=== PATIENT | male | born 1935 | race Caucasian/White ===

== ENCOUNTER 2018-12-27 08:15 | Inpatient (IN) | payer MEDICARE, MEDICAID ==
[2018-12-27] MEDS ORDERED: cefTRIAXone 2 GM in Sodium Chloride 0.9% 50 ML IV ONE (08:33)
--- NOTE | 2018-12-27 08:37 | EDM.PDOC ---
ED HPI GENERAL MEDICAL PROBLEM - General Chief Complaint: Genitourinary Problem Stated Complaint: VIA [facility] AM Time Seen by Provider: 12/27/18 08:15 Source of Information: Reports: Patient, Provider History Limitations: Reports: No Limitations - History of Present Illness INITIAL COMMENTS - FREE TEXT/NARRATIVE: 83-year-old male who lives in assisted living is usually fairly independent. Over the past 24 hours become weak, confused, febrile, and stumbled and fell last night due to his weakness. He did not get injured or hit his head. This morning he has generalized malaise, very weak and not himself. He still seems confused. No shortness of breath, cough, nausea or vomiting, rashes or complaints of pain. Onset: Gradual, Unknown/Unsure (Symptoms started over the last 1-2 days) Associated Symptoms: Reports: Confusion, Fever/Chills, Malaise, Weakness - Related Data Allergies Allergy/AdvReac Type Severity Reaction Status Date / Time No Known Allergies Allergy Verified 12/27/18 09:05 Home Meds: Home Meds Cyanocobalamin (Vitamin B12) [Vitamin B12] 1,000 mg PO DAILY 12/04/15 [History] Cholecalciferol (Vitamin D3) [Vitamin D3] 2,000 unit PO DAILY 12/27/18 [History] Diclofenac Sodium [Voltaren] 100 gm TP QID 12/27/18 [History] Memantine [Namenda] 10 mg PO BEDTIME 12/27/18 [History] Psyllium [Metamucil] 1 gm PO DAILY 12/27/18 [History] Past Medical History HEENT History: Reports: Cataract, Glaucoma, Impaired Vision Cardiovascular History: Reports: Hypertension Gastrointestinal History: Reports: GERD Genitourinary History: Reports: Other (See Below) Other Genitourinary History: chronic indwelling cassidy since 2015 Musculoskeletal History: Reports: Arthritis Hematologic History: Reports: B12 Deficiency - Infectious Disease History Infectious Disease History: Reports: Chicken Pox Social & Family History - Family History Family Medical History: Unobtainable ED ROS GENERAL - Review of Systems Review Of Systems: See Below Constitutional: Reports: Fever, Chills, Malaise HEENT: Reports: No Symptoms Respiratory: Denies: Shortness of Breath, Cough Cardiovascular: Denies: Chest Pain GI/Abdominal: Reports: Decreased Appetite. Denies: Abdominal Pain, Nausea, Vomiting : Reports: Other (Patient denies any symptoms. His urine is very cloudy and malodorous) Musculoskeletal: Reports: No Symptoms Neurological: Reports: Confusion, Weakness. Denies: Headache ED EXAM, GENERAL - Physical Exam Exam: See Below Exam Limited By: No Limitations General Appearance: Alert, No Apparent Distress, Other (Patient is awake, answers questions appropriately but appears weak and tired) Eye Exam: Bilateral Eye: Normal Inspection (No jaundice) Throat/Mouth: Normal Inspection (Hydration appears normal) Head: Atraumatic Neck: Supple, Non-Tender Respiratory/Chest: Lungs Clear Cardiovascular: Regular Rate, Rhythm. No: Tachycardia GI/Abdominal: Soft, Non-Tender Extremities: Non-Tender. No: Pedal Edema Neurological: Slow to Respond Psychiatric: Depressed Mood, Flat Affect Skin Exam: Warm, Dry Course - Vital Signs Last Recorded V/S: Last Vital Signs Temp 98.2 F 12/27/18 11:13 Pulse 66 12/27/18 11:13 Resp 16 12/27/18 11:13 BP 140/46 L 12/27/18 11:13 Pulse Ox 96 12/27/18 11:13 - Orders/Labs/Meds Orders: Active Orders 24 hr Category Date Time Status CULTURE BLOOD [BC] Urgent Lab 12/27/18 08:45 Received CULTURE BLOOD [BC] Urgent Lab 12/27/18 08:48 Received CULTURE URINE [RM] Stat Lab 12/27/18 08:45 Received Sodium Chloride 0.9% [Normal Saline] 1,000 ml Med 12/27/18 10:15 Active IV ASDIRECTED Blood Culture x2 Reflex Set [OM.PC] Urgent Oth 12/27/18 08:32 Ordered Medication Orders Acetaminophen (Tylenol) 650 mg PO Q4H PRN PRN Reason: Pain (Mild 1-3)/fever Cyanocobalamin (Vitamin B12) 1,000 mcg PO DAILY RICHARD Sodium Chloride (Normal Saline) 1,000 mls @ 100 mls/hr IV ASDIRECTED RICHARD Last Admin: 12/27/18 10:32 Dose: 100 mls/hr Ceftriaxone Sodium 2 gm/ (Sodium Chloride) 50 mls @ 100 mls/hr IV Q24H RICHARD Lactobacillus Rhamnosus (Culturelle) 1 cap PO BID RICHARD Magnesium Hydroxide (Milk Of Magnesia) 30 ml PO Q12H PRN PRN Reason: Constipation Melatonin (Melatonin) 9 mg PO BEDTIME RICHARD Memantine (Namenda) 10 mg PO BEDTIME RICHARD Ondansetron HCl (Zofran Odt) 4 mg PO Q6H PRN PRN Reason: Nausea able to take PO Ondansetron HCl (Zofran) 4 mg IV Q6H PRN PRN Reason: Nausea/Vomiting Pneumococcal Polyvalent Vaccine (Pneumovax 23) 0.5 ml SUBCUT .ONCE ONE Stop: 12/28/18 14:01 Psyllium Husk (Metamucil Sugar Free) 1 pkt PO DAILY RICHARD Senna/Docusate Sodium (Senna Plus) 1 tab PO BID PRN PRN Reason: Constipation Labs: Laboratory Tests 12/27/18 12/27/18 12/27/18 Range/Units 08:45 08:45 08:45 WBC 14.0 H (4.5-11.0) K/uL RBC 4.16 L (4.30-5.90) M/uL Hgb 12.0 (12.0-15.0) g/dL Hct 36.6 L (40.0-54.0) % MCV 88 (80-98) fL MCH 29 (27-31) pg MCHC 33 (32-36) % Plt Count 362 (150-400) K/uL Neut % (Auto) 74 H (36-66) % Lymph % (Auto) 8 L (24-44) % [place] % (Auto) 19 H (2-6) % Eos % (Auto) 0 L (2-4) % Baso % (Auto) 0 (0-1) % Sodium 137 L (140-148) mmol/L Potassium 4.0 (3.6-5.2) mmol/L Chloride 104 (100-108) mmol/L Carbon Dioxide 24 (21-32) mmol/L Anion Gap 13.0 (5.0-14.0) mmol/L BUN 26 H D (7-18) mg/dL Creatinine 1.6 H D (0.8-1.3) mg/dL Est Cr Clr Drug Dosing 28.45 mL/min Estimated GFR (MDRD) 41 L (>60) Glucose 136 H (74-106) mg/dL Lactic Acid (0.4-2.0) mmol/L Calcium 10.6 H (8.5-10.1) mg/dL Total Bilirubin 0.9 D (0.2-1.0) mg/dL AST 24 (15-37) U/L ALT 21 (12-78) U/L Alkaline Phosphatase 111 (46-116) U/L Total Protein 7.3 (6.4-8.2) g/dL Albumin 3.0 L (3.4-5.0) g/dL Globulin 4.3 H (2.3-3.5) g/dL Albumin/Globulin Ratio 0.7 L (1.2-2.2) Urine Color Yellow Urine Appearance Cloudy Urine pH 9.0 H (4.5-8.0) Ur Specific [place] 1.005 L (1.008-1.030) Urine Protein 500 H (NEGATIVE) mg/dL Urine Glucose (UA) Normal (NEGATIVE) mg/dL Urine Ketones Negative (NEGATIVE) mg/dL Urine Occult Blood Large (NEGATIVE) Urine Nitrite Positive H (NEGAITVE) Urine Bilirubin Negative (NEGATIVE) Urine Urobilinogen Normal (NORMAL) mg/dL Ur Leukocyte Esterase Large (NEGATIVE) Urine RBC 40-50 H (0-5) Urine WBC 75-100 H (0-5) Ur Epithelial Cells Not seen Amorphous Sediment Not seen Urine Bacteria Many Urine Mucus Not seen 12/27/18 Range/Units 08:45 WBC (4.5-11.0) K/uL RBC (4.30-5.90) M/uL Hgb (12.0-15.0) g/dL Hct (40.0-54.0) % MCV (80-98) fL MCH (27-31) pg MCHC (32-36) % Plt Count (150-400) K/uL Neut % (Auto) (36-66) % Lymph % (Auto) (24-44) % [place] % (Auto) (2-6) % Eos % (Auto) (2-4) % Baso % (Auto) (0-1) % Sodium (140-148) mmol/L Potassium (3.6-5.2) mmol/L Chloride (100-108) mmol/L Carbon Dioxide (21-32) mmol/L Anion Gap (5.0-14.0) mmol/L BUN (7-18) mg/dL Creatinine (0.8-1.3) mg/dL Est Cr Clr Drug Dosing mL/min Estimated GFR (MDRD) (>60) Glucose (74-106) mg/dL Lactic Acid 1.3 (0.4-2.0) mmol/L Calcium (8.5-10.1) mg/dL Total Bilirubin (0.2-1.0) mg/dL AST (15-37) U/L ALT (12-78) U/L Alkaline Phosphatase (46-116) U/L Total Protein (6.4-8.2) g/dL Albumin (3.4-5.0) g/dL Globulin (2.3-3.5) g/dL Albumin/Globulin Ratio (1.2-2.2) Urine Color Urine Appearance Urine pH (4.5-8.0) Ur Specific [place] (1.008-1.030) Urine Protein (NEGATIVE) mg/dL Urine Glucose (UA) (NEGATIVE) mg/dL Urine Ketones (NEGATIVE) mg/dL Urine Occult Blood (NEGATIVE) Urine Nitrite (NEGAITVE) Urine Bilirubin (NEGATIVE) Urine Urobilinogen (NORMAL) mg/dL Ur Leukocyte Esterase (NEGATIVE) Urine RBC (0-5) Urine WBC (0-5) Ur Epithelial Cells Amorphous Sediment Urine Bacteria Urine Mucus Meds: Medications Generic Name Dose Route Start Last Admin Trade Name Freq PRN Reason Stop Dose Admin Acetaminophen 650 mg 12/27/18 10:38 Tylenol PO Q4H PRN Pain (Mild 1-3)/fever Cyanocobalamin 1,000 mcg 12/28/18 09:00 Vitamin B12 PO DAILY RICHARD Sodium Chloride 1,000 mls @ 100 mls/hr 12/27/18 10:15 12/27/18 10:32 Normal Saline IV 100 mls/hr ASDIRECTED RICHARD Administration Ceftriaxone Sodium 2 gm/ 50 mls @ 100 mls/hr 12/28/18 09:00 Sodium Chloride IV Q24H RICHARD Lactobacillus Rhamnosus 1 cap 12/27/18 21:00 Culturelle PO BID RICHARD Magnesium Hydroxide 30 ml 12/27/18 10:38 Milk Of Magnesia PO Q12H PRN Constipation Melatonin 9 mg 12/27/18 21:00 Melatonin PO BEDTIME RICHARD Memantine 10 mg 12/27/18 21:00 Namenda PO BEDTIME RICHARD Ondansetron HCl 4 mg 12/27/18 10:38 Zofran Odt PO Q6H PRN Nausea able to take PO Ondansetron HCl 4 mg 12/27/18 10:38 Zofran IV Q6H PRN Nausea/Vomiting Pneumococcal Polyvalent Vaccine 0.5 ml 12/28/18 14:00 Pneumovax 23 SUBCUT 12/28/18 14:01 .ONCE ONE Psyllium Husk 1 pkt 12/28/18 09:00 Metamucil Sugar Free PO DAILY RICHARD Senna/Docusate Sodium 1 tab 12/27/18 10:38 Senna Plus PO BID PRN Constipation Discontinued Medications Generic Name Dose Route Start Last Admin Trade Name Freq PRN Reason Stop Dose Admin Sodium Chloride 1,000 mls @ 1,000 mls/hr 12/27/18 08:45 12/27/18 08:48 Normal Saline IV 1,000 mls/hr ASDIRECTED RICHARD Administration Ceftriaxone Sodium 2 gm/ 50 mls @ 100 mls/hr 12/27/18 08:33 12/27/18 08:58 Sodium Chloride IV 12/27/18 09:02 100 mls/hr ONETIME ONE Administration - Re-Assessments/Exams Free Text/Narrative Re-Assessment/Exam: 12/27/18 08:37 IV was started, patient was given 1 L of normal saline along with 2 g of Rocephin after blood cultures obtained. A urine obtained was very cloudy and malodorous, CBC CMP and lactic acid also obtained. Suspect a urinary tract infection 12/27/18 09:10 White count is 14,000, UA is markedly abnormal with nitrite positive urine, many bacteria and significant WBCs and RBCs. Fluids were continued and Dr. Mcnamara of the hospitalist service was contacted to assess the patient for admission. CMP is still pending. Departure - Departure Time of Disposition: 10:52 Disposition: Admitted As Inpatient 64 Clinical Impression: UTI, Urinary tract infectious disease, Complicated urinary tract infection - Discharge Information - My Orders Last 24 Hours: My Active Orders 12/27/18 08:32 Blood Culture x2 Reflex Set [OM.PC] Urgent 12/27/18 08:45 CULTURE BLOOD [BC] Urgent CULTURE URINE [RM] Stat 12/27/18 08:48 CULTURE BLOOD [BC] Urgent - Assessment/Plan Last 24 Hours: My Active Orders 12/27/18 08:32 Blood Culture x2 Reflex Set [OM.PC] Urgent 12/27/18 08:45 CULTURE BLOOD [BC] Urgent CULTURE URINE [RM] Stat 12/27/18 08:48 CULTURE BLOOD [BC] Urgent
[2018-12-27] MEDS ORDERED: Sodium Chloride 0.9% 1,000 ML IV SCH (08:45)
--- NOTE | 2018-12-27 10:16 | PCM.HP ---
H&P History of Present Illness - General Date of Service: 12/27/18 Admit Problem/Dx: Admission Diagnosis/Problem Admission Diagnosis/Problem Complicated urinary tract infection Source of Information: Patient, Family, Provider History Limitations: Reports: Altered Mental Status (moderate confusion ) - History of Present Illness Initial Comments - Free Text/Narative: CC: i am worried about going potty HPI: Chauncey presents to the emergency room today from [facility]. He is moderately confused and provides some history but most of the history is provided by his daughter Meredith. She reports that yesterday he was more sleepy than usual and did not have much of an appetite. Staff at the assisted living did not notice anything out of the ordinary for his vital signs. There were no acute issues overnight last night but this morning he was confused and more sleepy. They were worried that he may be had a stroke so he was sent for evaluation. This morning the patient tells me that he is very nervous about passing urine because it hurts to pass urine. He does not report any abdominal pain or nausea. His daughter did notice some blood in his depends that she thought was dribbling from urination. He doesn't think he's had any fevers and assisted living staff have not documented any. His daughter reports that he does have a history of urinary tract infections. No recent antibiotics. Workup in the emergency room has revealed evidence for urinary tract infection. He does not have complete obstruction at this time and is able to pass some urine. Does not have evidence for sepsis but is weak and confused. He has received ceftriaxone and cultures have been obtained. He will be admitted for further management. - Related Data Allergies/Adverse Reactions: Allergies Allergy/AdvReac Type Severity Reaction Status Date / Time No Known Allergies Allergy Verified 12/27/18 09:05 Home Medications: Home Meds Cyanocobalamin (Vitamin B12) [Vitamin B12] 1,000 mg PO DAILY 12/04/15 [History] Cholecalciferol (Vitamin D3) [Vitamin D3] 2,000 unit PO DAILY 12/27/18 [History] Diclofenac Sodium [Voltaren] 100 gm TP QID 12/27/18 [History] Memantine [Namenda] 10 mg PO BEDTIME 12/27/18 [History] Psyllium [Metamucil] 1 gm PO DAILY 12/27/18 [History] Past Medical History HEENT History: Reports: Cataract, Glaucoma, Impaired Vision Other HEENT History: dry eye Cardiovascular History: Reports: Hypertension Other Cardiovascular History: RBBB Gastrointestinal History: Reports: GERD Genitourinary History: Reports: Other (See Below) Other Genitourinary History: chronic indwelling cassidy since 2015 Musculoskeletal History: Reports: Arthritis Neurological History: Reports: Other (See Below) Other Neuro History: dementia Psychiatric History: Reports: Schizophrenia Hematologic History: Reports: B12 Deficiency Dermatologic History: Reports: Other (See Below) Other Dermatologic History: alopecia - Infectious Disease History Infectious Disease History: Reports: Chicken Pox - Past Surgical History HEENT Surgical History: Reports: Cataract Surgery Male Surgical History: Reports: Other (See Below) Other Male Surgeries/Procedures: BPH Social & Family History - Family History Family Medical History: Unobtainable - Tobacco Use Smoking Status *Q: Unknown Ever Smoked - Caffeine Use Caffeine Use: Reports: Other Other Caffeine Use: unknown H&P Review of Systems - Review of Systems: Review Of Systems: See Below Free Text/Narrative: A complete 12 point review of systems was obtained. Pertinent positives and negatives are noted in the history of present illness. All other systems were reviewed and were negative except as noted. Exam - Exam Exam: See Below - Vital Signs Vital Signs: Last Vital Signs Temp 37.7 C 12/27/18 08:18 Pulse 89 12/27/18 08:18 Resp 18 12/27/18 08:18 BP 154/73 H 12/27/18 08:18 Pulse Ox 95 12/27/18 08:18 Weight: 61.689 kg - Exam Quality Assessment: No: Supplemental Oxygen General: Alert, Cooperative. No: Mild Distress HEENT: Conjunctiva Clear. No: Mucosa Moist & [place] (dry), Scleral Icterus Neck: Supple, Trachea Midline. No: Lymphadenopathy Lungs: Clear to Auscultation, Normal Respiratory Effort Cardiovascular: Regular Rate, Regular Rhythm. No: Systolic Murmur GI/Abdominal Exam: Normal Bowel Sounds, Soft, Non-Tender, No Distention Extremities: No Pedal Edema. No: Increased Warmth Peripheral Pulses: 2+: Dorsalis Pedis (L), Dorsalis Pedis (R) Skin: Warm, Dry. No: Rash Neuro Extensive - Mental Status: Alert, Nl Response to Commands. No: Oriented x3 Neuro Extensive - Motor, Sensory, Reflexes: No: Dysarthria, Abnormal Motor, Tremor Psychiatric: Alert, Normal Affect - Patient Data Lab Results Last 24 hrs: Laboratory Results - last 24 hr 12/27/18 12/27/18 12/27/18 Range/Units 08:45 08:45 08:45 WBC 14.0 H (4.5-11.0) K/uL RBC 4.16 L (4.30-5.90) M/uL Hgb 12.0 (12.0-15.0) g/dL Hct 36.6 L (40.0-54.0) % MCV 88 (80-98) fL MCH 29 (27-31) pg MCHC 33 (32-36) % Plt Count 362 (150-400) K/uL Neut % (Auto) 74 H (36-66) % Lymph % (Auto) 8 L (24-44) % [place] % (Auto) 19 H (2-6) % Eos % (Auto) 0 L (2-4) % Baso % (Auto) 0 (0-1) % Sodium 137 L (140-148) mmol/L Potassium 4.0 (3.6-5.2) mmol/L Chloride 104 (100-108) mmol/L Carbon Dioxide 24 (21-32) mmol/L Anion Gap 13.0 (5.0-14.0) mmol/L BUN 26 H D (7-18) mg/dL Creatinine 1.6 H D (0.8-1.3) mg/dL Est Cr Clr Drug Dosing 28.45 mL/min Estimated GFR (MDRD) 41 L (>60) Glucose 136 H (74-106) mg/dL Lactic Acid (0.4-2.0) mmol/L Calcium 10.6 H (8.5-10.1) mg/dL Total Bilirubin 0.9 D (0.2-1.0) mg/dL AST 24 (15-37) U/L ALT 21 (12-78) U/L Alkaline Phosphatase 111 (46-116) U/L Total Protein 7.3 (6.4-8.2) g/dL Albumin 3.0 L (3.4-5.0) g/dL Globulin 4.3 H (2.3-3.5) g/dL Albumin/Globulin Ratio 0.7 L (1.2-2.2) Urine Color Yellow Urine Appearance Cloudy Urine pH 9.0 H (4.5-8.0) Ur Specific [place] 1.005 L (1.008-1.030) Urine Protein 500 H (NEGATIVE) mg/dL Urine Glucose (UA) Normal (NEGATIVE) mg/dL Urine Ketones Negative (NEGATIVE) mg/dL Urine Occult Blood Large (NEGATIVE) Urine Nitrite Positive H (NEGAITVE) Urine Bilirubin Negative (NEGATIVE) Urine Urobilinogen Normal (NORMAL) mg/dL Ur Leukocyte Esterase Large (NEGATIVE) Urine RBC 40-50 H (0-5) Urine WBC 75-100 H (0-5) Ur Epithelial Cells Not seen Amorphous Sediment Not seen Urine Bacteria Many Urine Mucus Not seen 12/27/18 Range/Units 08:45 WBC (4.5-11.0) K/uL RBC (4.30-5.90) M/uL Hgb (12.0-15.0) g/dL Hct (40.0-54.0) % MCV (80-98) fL MCH (27-31) pg MCHC (32-36) % Plt Count (150-400) K/uL Neut % (Auto) (36-66) % Lymph % (Auto) (24-44) % [place] % (Auto) (2-6) % Eos % (Auto) (2-4) % Baso % (Auto) (0-1) % Sodium (140-148) mmol/L Potassium (3.6-5.2) mmol/L Chloride (100-108) mmol/L Carbon Dioxide (21-32) mmol/L Anion Gap (5.0-14.0) mmol/L BUN (7-18) mg/dL Creatinine (0.8-1.3) mg/dL Est Cr Clr Drug Dosing mL/min Estimated GFR (MDRD) (>60) Glucose (74-106) mg/dL Lactic Acid 1.3 (0.4-2.0) mmol/L Calcium (8.5-10.1) mg/dL Total Bilirubin (0.2-1.0) mg/dL AST (15-37) U/L ALT (12-78) U/L Alkaline Phosphatase (46-116) U/L Total Protein (6.4-8.2) g/dL Albumin (3.4-5.0) g/dL Globulin (2.3-3.5) g/dL Albumin/Globulin Ratio (1.2-2.2) Urine Color Urine Appearance Urine pH (4.5-8.0) Ur Specific [place] (1.008-1.030) Urine Protein (NEGATIVE) mg/dL Urine Glucose (UA) (NEGATIVE) mg/dL Urine Ketones (NEGATIVE) mg/dL Urine Occult Blood (NEGATIVE) Urine Nitrite (NEGAITVE) Urine Bilirubin (NEGATIVE) Urine Urobilinogen (NORMAL) mg/dL Ur Leukocyte Esterase (NEGATIVE) Urine RBC (0-5) Urine WBC (0-5) Ur Epithelial Cells Amorphous Sediment Urine Bacteria Urine Mucus Result Diagrams: 12/27/18 08:45 12/27/18 08:45 *Q Meaningful Use (ADM) - VTE Risk Assess *Q Each Risk Factor Represents 1 Point: None Total Score 1 Point Risk Factors: 0 Each Risk Factor Represents 2 Points: None Total Score 2 Point Risk Factors: 0 Each Risk Factor Represents 3 Points: Age 75 Years or Greater Total Score 3 Point Risk Factors: 3 Each Risk Factor Represents 5 Points: None Total Score 5 Point Risk Factors: 0 Venous Thromboembolism Risk Factor Score *Q: 3 - Problem List (1) Complicated urinary tract infection SNOMED Code(s): 75516415 ICD Code: N39.0 - URINARY TRACT INFECTION, SITE NOT SPECIFIED Status: Acute Current Visit: Yes (2) Acute kidney injury SNOMED Code(s): 41385030, 26369285 ICD Code: N17.9 - ACUTE KIDNEY FAILURE, UNSPECIFIED Status: Acute Current Visit: Yes (3) Alzheimer's dementia without behavioral disturbance SNOMED Code(s): 86000485 ICD Code: G30.9 - ALZHEIMER'S DISEASE, UNSPECIFIED; F02.80 - DEMENTIA IN OTH DISEASES CLASSD ELSWHR W/O BEHAVRL DISTURB Status: Acute Current Visit: Yes (4) BPH NOS w ur obs/LUTS SNOMED Code(s): 470800768, 783472670 ICD Code: N40.1 - BENIGN PROSTATIC HYPERPLASIA WITH LOWER URINARY TRACT SYMP Status: Acute Current Visit: Yes Problem List Initiated/Reviewed/Updated: Yes Orders Last 24hrs: Active Orders 24 hr Category Date Time Status Patient Status Manage Transfer [TRANSFER] Routine ADT 12/27/18 10:07 Ordered CULTURE BLOOD [BC] Urgent Lab 12/27/18 08:45 Received CULTURE BLOOD [BC] Urgent Lab 12/27/18 08:48 Received CULTURE URINE [RM] Stat Lab 12/27/18 08:45 Received Sodium Chloride 0.9% [Normal Saline] 1,000 ml Med 12/27/18 08:45 Active IV ASDIRECTED Sodium Chloride 0.9% [Normal Saline] 1,000 ml Med 12/27/18 10:15 Active IV ASDIRECTED Blood Culture x2 Reflex Set [OM.PC] Urgent Oth 12/27/18 08:32 Ordered Resuscitation Status Routine Resus Stat 12/27/18 10:09 Ordered Medication Orders Sodium Chloride (Normal Saline) 1,000 mls @ 1,000 mls/hr IV ASDIRECTED RICHARD Last Admin: 12/27/18 08:48 Dose: 1,000 mls/hr Sodium Chloride (Normal Saline) 1,000 mls @ 100 mls/hr IV ASDIRECTED RICHARD Assessment/Plan Comment:: ASSESSMENT AND PLAN - Compensated urinary tract infection - history of BPH with lower urinary tract symptoms. Previous history of urinary obstruction necessitating temporary Cassidy catheter placement. No evidence for complete obstruction at this time. No evidence for sepsis but he is weak, confused and not safe for outpatient management. He is at high risk for development of urinary retention. -IV fluids -Ceftriaxone -Follow-up cultures Acute kidney injury - moderate elevation of creatinine from baseline. Probably related to poor intake and infection. I would anticipate this will improve with IV fluids as mentioned above. Alzheimer's dementia - appears to be relatively mild at this time. -Melatonin at bedtime -Continue home medication at bedtime Maintenance issues - - DVT prophylaxis - mechanical - GI prophylaxis - not indicated - Nutrition - regular - Cassidy catheter - not indicated at this time CODE STATUS - DNR/DNI per advance directive Admission justification - This patient will be admitted for inpatient services and is medically appropriate meeting medical necessity for inpatient admission as outlined in my documentation. I reasonably expect the patient will require inpatient services that span a period time over 2 midnights. I reasonably expect this patient to be discharged or transferred within 96 hours [facility]. Disposition - I would anticipate discharge back to the assisted living facility after the hospital stay Primary care physician - [facility] Laurent Mcnamara M.D.
[2018-12-27] MEDS: Sodium Chloride 0.9% 1,000 ML IV SCH ×2 (10:32→19:52)
[2018-12-27] MEDS ORDERED: Ondansetron 4 MG/2 ML SDV IV PRN (10:38)
[2018-12-27] MEDS ORDERED: Ondansetron 4 MG Tab.DIS PO PRN (10:38)
[2018-12-27] MEDS ORDERED: Acetaminophen 325 MG Tab PO PRN (10:38)
[2018-12-27] MEDS ORDERED: Magnesium Hydroxide 400 MG/5 ML Susp 30 ML Cup PO PRN (10:38)
[2018-12-27] MEDS: Lactobacillus Rhamnosus GG (Probiotic) Cap PO SCH (21:54)
[2018-12-27] MEDS: Memantine 10 MG Tab PO SCH (21:54)
[2018-12-27] MEDS: Melatonin 3 MG Tab PO SCH (21:54)
[2018-12-28] MEDS: Sodium Chloride 0.9% 1,000 ML IV SCH (05:36)
[2018-12-28] MEDS: cefTRIAXone 2 GM in Sodium Chloride 0.9% 50 ML IV SCH (08:15)
[2018-12-28] MEDS: Psyllium Husk Powder Sugar Free 5.85 GM Packet PO SCH (08:18)
[2018-12-28] MEDS: Cyanocobalamin (Vitamin B12) 1,000 MCG Tab PO SCH (08:18)
[2018-12-28] MEDS: Lactobacillus Rhamnosus GG (Probiotic) Cap PO SCH ×2 (08:18→21:30)
--- NOTE | 2018-12-28 11:13 | PCM.PN ---
- General Info Date of Service: 12/28/18 Subjective Update: no acute events overnight. No fevers overnight. Patient does not report abdominal pain or dysuria. He remains pleasantly confused. He has been up and walking around and did well with physical therapy. Urine culture is growing a gram-negative rods with identification pending. Functional Status: Reports: Pain Controlled, Tolerating Diet - Review of Systems General: Denies: Fever Genitourinary: Denies: Dysuria - Patient Data Vitals - Most Recent: Last Vital Signs Temp 36.6 C 12/28/18 11:06 Pulse 52 L 12/28/18 11:06 Resp 16 12/28/18 11:06 BP 109/54 L 12/28/18 11:06 Pulse Ox 97 12/28/18 11:06 Weight - Most Recent: 61.689 kg I&O - Last 24 Hours: Intake & Output 12/27/18 12/28/18 12/28/18 22:59 06:59 14:59 Intake Total 978 1124 670 Output Total 150 150 150 Balance 828 974 520 Lab Results Last 24 Hours: Laboratory Results - last 24 hr 12/28/18 12/28/18 Range/Units 04:37 04:37 WBC 11.4 H (4.5-11.0) K/uL RBC 3.68 L (4.30-5.90) M/uL Hgb 10.3 L (12.0-15.0) g/dL Hct 32.8 L (40.0-54.0) % MCV 89 (80-98) fL MCH 28 (27-31) pg MCHC 31 L (32-36) % Plt Count 308 (150-400) K/uL Sodium 142 (140-148) mmol/L Potassium 4.0 (3.6-5.2) mmol/L Chloride 111 H (100-108) mmol/L Carbon Dioxide 24 (21-32) mmol/L Anion Gap 11.0 (5.0-14.0) mmol/L BUN 22 H (7-18) mg/dL Creatinine 1.3 (0.8-1.3) mg/dL Est Cr Clr Drug Dosing 35.02 mL/min Estimated GFR (MDRD) 52 L (>60) Glucose 94 (74-106) mg/dL Calcium 10.1 (8.5-10.1) mg/dL Ramo Results Last 24 Hours: Microbiology 12/27/18 08:48 Aerobic Blood Culture - Preliminary Blood - Arm, Right NO GROWTH AFTER 1 DAY Anaerobic Blood Culture - Preliminary NO GROWTH AFTER 1 DAY 12/27/18 08:45 Aerobic Blood Culture - Preliminary Blood - Venous - Iv Start NO GROWTH AFTER 1 DAY Anaerobic Blood Culture - Preliminary NO GROWTH AFTER 1 DAY 12/27/18 08:45 Urine Culture - Preliminary Urine, Clean Catch Med Orders - Current: Current Medications Acetaminophen (Tylenol) 650 mg PO Q4H PRN PRN Reason: Pain (Mild 1-3)/fever Cyanocobalamin (Vitamin B12) 1,000 mcg PO DAILY [facility] Last Admin: 12/28/18 08:18 Dose: 1,000 mcg Ceftriaxone Sodium 2 gm/ (Sodium Chloride) 50 mls @ 100 mls/hr IV Q24H [facility] Last Admin: 12/28/18 08:15 Dose: 100 mls/hr Lactobacillus Rhamnosus (Culturelle) 1 cap PO BID [facility] Last Admin: 12/28/18 08:18 Dose: 1 cap Magnesium Hydroxide (Milk Of Magnesia) 30 ml PO Q12H PRN PRN Reason: Constipation Melatonin (Melatonin) 9 mg PO BEDTIME [facility] Last Admin: 12/27/18 21:54 Dose: 9 mg Memantine (Namenda) 10 mg PO BEDTIME [facility] Last Admin: 12/27/18 21:54 Dose: 10 mg Ondansetron HCl (Zofran Odt) 4 mg PO Q6H PRN PRN Reason: Nausea able to take PO Ondansetron HCl (Zofran) 4 mg IV Q6H PRN PRN Reason: Nausea/Vomiting Pneumococcal Polyvalent Vaccine (Pneumovax 23) 0.5 ml SUBCUT .ONCE ONE Stop: 12/28/18 14:01 Psyllium Husk (Metamucil Sugar Free) 1 pkt PO DAILY [facility] Last Admin: 12/28/18 08:18 Dose: 1 pkt Senna/Docusate Sodium (Senna Plus) 1 tab PO BID PRN PRN Reason: Constipation Discontinued Medications Sodium Chloride (Normal Saline) 1,000 mls @ 1,000 mls/hr IV ASDIRECTED [facility] Last Admin: 12/27/18 08:48 Dose: 1,000 mls/hr Ceftriaxone Sodium 2 gm/ (Sodium Chloride) 50 mls @ 100 mls/hr IV ONETIME ONE Stop: 12/27/18 09:02 Last Admin: 12/27/18 08:58 Dose: 100 mls/hr Sodium Chloride (Normal Saline) 1,000 mls @ 100 mls/hr IV ASDIRECTED [facility] Last Admin: 12/28/18 05:36 Dose: 100 mls/hr - Exam Quality Assessment: No: Supplemental Oxygen General: Alert, Cooperative, No Acute Distress Lungs: Normal Respiratory Effort Cardiovascular: Regular Rate, Regular Rhythm GI/Abdominal Exam: Soft, No Distention Extremities: No Pedal Edema Psy/Mental Status: Alert, Normal Affect - Problem List & Annotations (1) Complicated urinary tract infection SNOMED Code(s): 37801435 Code(s): N39.0 - URINARY TRACT INFECTION, SITE NOT SPECIFIED Status: Acute Current Visit: Yes (2) Acute kidney injury SNOMED Code(s): 99943777, 80158957 Code(s): N17.9 - ACUTE KIDNEY FAILURE, UNSPECIFIED Status: Acute Current Visit: Yes (3) Alzheimer's dementia without behavioral disturbance SNOMED Code(s): 69530487 Code(s): G30.9 - ALZHEIMER'S DISEASE, UNSPECIFIED; F02.80 - DEMENTIA IN OTH DISEASES CLASSD ELSWHR W/O BEHAVRL DISTURB Status: Acute Current Visit: Yes (4) BPH NOS w ur obs/LUTS SNOMED Code(s): 535600133, 784169289 Code(s): N40.1 - BENIGN PROSTATIC HYPERPLASIA WITH LOWER URINARY TRACT SYMP Status: Acute Current Visit: Yes - Problem List Review Problem List Initiated/Reviewed/Updated: Yes - My Orders Last 24 Hours: My Active Orders 12/27/18 10:38 Patient Status [ADT] Routine Antiembolic Devices [RC] .Routine Intake and Output [RC] QSHIFT Notify Provider Vital Signs [RC] ASDIRECTED Oxygen Therapy [RC] PRN Up With Assistance [RC] ASDIRECTED Vital Signs [RC] Q4H Acetaminophen [Tylenol] 650 mg PO Q4H PRN Docusate Sodium/Sennosides [Senna Plus] 1 tab PO BID PRN Magnesium Hydroxide [Milk of Magnesia] 30 ml PO Q12H PRN Ondansetron [Zofran ODT] 4 mg PO Q6H PRN Ondansetron [Zofran] 4 mg IV Q6H PRN Sequential Compression Device [OM.PC] Routine 12/27/18 21:00 Lactobacillus Rhamnosus GG [Culturelle] 1 cap PO BID Melatonin 9 mg PO BEDTIME Memantine [Namenda] 10 mg PO BEDTIME 12/27/18 Lunch Regular Diet [DIET] 12/28/18 07:00 PT Evaluation and Treatment [CONS] Routine 12/28/18 09:00 Cyanocobalamin (Vitamin B12) [Vitamin B12] 1,000 mcg PO DAILY Psyllium Husk/Aspartame [Metamucil Sugar Free] 1 pkt PO DAILY cefTRIAXone [Rocephin] 2 gm Sodium Chloride 0.9% [Normal Saline] 50 ml IV Q24H 12/28/18 09:16 Convert IV to Saline Lock [OM.PC] Routine 12/28/18 14:00 Pneumococcal Polyvalent-23 Vac [Pneumovax 23] 0.5 ml SUBCUT .ONCE ONE 12/29/18 05:00 BASIC METABOLIC PANEL,BMP [CHEM] Timed CBC W/O DIFF,HEMOGRAM [HEME] Timed (1) - Plan Plan:: ASSESSMENT AND PLAN - Compensated urinary tract infection - history of BPH with lower urinary tract symptoms. white count improving. Urine culture growing gram-negative gissel. Urinary symptoms improving. -saline lock IV fluids -Ceftriaxone -Follow-up culture Acute kidney injury - moderate elevation of creatinine from baseline. creatinine has improved overnight and I would expect further improvement over the next 24 hours. Alzheimer's dementia - appears to be relatively mild at this time. No behavior issues. -Melatonin at bedtime -Continue home medication at bedtime Maintenance issues - - DVT prophylaxis - mechanical - GI prophylaxis - not indicated - Nutrition - regular Disposition - I would anticipate discharge back to the assisted living facility after the hospital stay Primary care physician - [facility] Laurent Mcnamara M.D.
[2018-12-28] MEDS ORDERED: Pneumococcal Polyvalent-23 Vaccine 0.5 ML SDV SUBCUT ONE (14:00)
[2018-12-28] MEDS: Melatonin 3 MG Tab PO SCH (21:31)
[2018-12-28] MEDS: Memantine 10 MG Tab PO SCH (21:32)
[2018-12-29] MEDS: Psyllium Husk Powder Sugar Free 5.85 GM Packet PO SCH (08:31)
[2018-12-29] MEDS: Cyanocobalamin (Vitamin B12) 1,000 MCG Tab PO SCH (08:31)
[2018-12-29] MEDS: Lactobacillus Rhamnosus GG (Probiotic) Cap PO SCH ×2 (08:31→20:31)
[2018-12-29] MEDS: cefTRIAXone 2 GM in Sodium Chloride 0.9% 50 ML IV SCH (08:37)
--- NOTE | 2018-12-29 09:07 | PCM.PN ---
- General Info Date of Service: 12/29/18 Subjective Update: No acute events overnight. No fevers. No behavior issues. Vital signs have all been stable. Appetite has been good. Strength is improving. Urine culture grew out a Proteus which is sensitive to third-generation cephalosporins. Functional Status: Reports: Pain Controlled, Tolerating Diet - Review of Systems General: Denies: Fever - Patient Data Vitals - Most Recent: Last Vital Signs Temp 36.6 C 12/29/18 07:13 Pulse 53 L 12/29/18 07:13 Resp 16 12/29/18 07:13 BP 144/66 H 12/29/18 07:13 Pulse Ox 96 12/29/18 07:13 Weight - Most Recent: 61.689 kg I&O - Last 24 Hours: Intake & Output 12/28/18 12/29/18 12/29/18 22:59 06:59 14:59 Intake Total 670 Output Total 175 Balance -175 670 Lab Results Last 24 Hours: Laboratory Results - last 24 hr 12/29/18 12/29/18 Range/Units 05:22 05:22 WBC 9.4 (4.5-11.0) K/uL RBC 3.47 L (4.30-5.90) M/uL Hgb 9.7 L (12.0-15.0) g/dL Hct 31.3 L (40.0-54.0) % MCV 90 (80-98) fL MCH 28 (27-31) pg MCHC 31 L (32-36) % Plt Count 312 (150-400) K/uL Sodium 143 (140-148) mmol/L Potassium 4.1 (3.6-5.2) mmol/L Chloride 111 H (100-108) mmol/L Carbon Dioxide 25 (21-32) mmol/L Anion Gap 11.1 (5.0-14.0) mmol/L BUN 20 H (7-18) mg/dL Creatinine 1.2 (0.8-1.3) mg/dL Est Cr Clr Drug Dosing 37.94 mL/min Estimated GFR (MDRD) 58 L (>60) Glucose 88 (74-106) mg/dL Calcium 10.2 H (8.5-10.1) mg/dL Ramo Results Last 24 Hours: Microbiology 12/27/18 08:48 Aerobic Blood Culture - Preliminary Blood - Arm, Right NO GROWTH AFTER 2 DAYS Anaerobic Blood Culture - Preliminary NO GROWTH AFTER 2 DAYS 12/27/18 08:45 Aerobic Blood Culture - Preliminary Blood - Venous - Iv Start NO GROWTH AFTER 2 DAYS Anaerobic Blood Culture - Preliminary NO GROWTH AFTER 2 DAYS 12/27/18 08:45 Urine Culture - Final Urine, Clean Catch Proteus Hauseri Med Orders - Current: Current Medications Acetaminophen (Tylenol) 650 mg PO Q4H PRN PRN Reason: Pain (Mild 1-3)/fever Cyanocobalamin (Vitamin B12) 1,000 mcg PO DAILY [facility] Last Admin: 12/29/18 08:31 Dose: 1,000 mcg Ceftriaxone Sodium 2 gm/ (Sodium Chloride) 50 mls @ 100 mls/hr IV Q24H [facility] Last Admin: 12/29/18 08:37 Dose: 100 mls/hr Lactobacillus Rhamnosus (Culturelle) 1 cap PO BID [facility] Last Admin: 12/29/18 08:31 Dose: 1 cap Magnesium Hydroxide (Milk Of Magnesia) 30 ml PO Q12H PRN PRN Reason: Constipation Melatonin (Melatonin) 9 mg PO BEDTIME [facility] Last Admin: 12/28/18 21:31 Dose: 9 mg Memantine (Namenda) 10 mg PO BEDTIME [facility] Last Admin: 12/28/18 21:32 Dose: 10 mg Ondansetron HCl (Zofran Odt) 4 mg PO Q6H PRN PRN Reason: Nausea able to take PO Ondansetron HCl (Zofran) 4 mg IV Q6H PRN PRN Reason: Nausea/Vomiting Psyllium Husk (Metamucil Sugar Free) 1 pkt PO DAILY [facility] Last Admin: 12/29/18 08:31 Dose: 1 pkt Senna/Docusate Sodium (Senna Plus) 1 tab PO BID PRN PRN Reason: Constipation Discontinued Medications Sodium Chloride (Normal Saline) 1,000 mls @ 1,000 mls/hr IV ASDIRECTED [facility] Last Admin: 12/27/18 08:48 Dose: 1,000 mls/hr Ceftriaxone Sodium 2 gm/ (Sodium Chloride) 50 mls @ 100 mls/hr IV ONETIME ONE Stop: 12/27/18 09:02 Last Admin: 12/27/18 08:58 Dose: 100 mls/hr Sodium Chloride (Normal Saline) 1,000 mls @ 100 mls/hr IV ASDIRECTED [facility] Last Admin: 12/28/18 05:36 Dose: 100 mls/hr Pneumococcal Polyvalent Vaccine (Pneumovax 23) 0.5 ml SUBCUT .ONCE ONE Stop: 12/28/18 14:01 Last Admin: 12/28/18 13:38 Dose: 0.5 ml - Exam Quality Assessment: No: Supplemental Oxygen General: Alert, Cooperative, No Acute Distress Lungs: Normal Respiratory Effort GI/Abdominal Exam: Soft, No Distention Extremities: No Pedal Edema Skin: Warm, Dry Psy/Mental Status: Alert, Normal Affect - Problem List & Annotations (1) Complicated urinary tract infection SNOMED Code(s): 62333034 Code(s): N39.0 - URINARY TRACT INFECTION, SITE NOT SPECIFIED Status: Acute Current Visit: Yes (2) Acute kidney injury SNOMED Code(s): 92109984, 07205389 Code(s): N17.9 - ACUTE KIDNEY FAILURE, UNSPECIFIED Status: Acute Current Visit: Yes (3) Alzheimer's dementia without behavioral disturbance SNOMED Code(s): 88015828 Code(s): G30.9 - ALZHEIMER'S DISEASE, UNSPECIFIED; F02.80 - DEMENTIA IN OTH DISEASES CLASSD ELSWHR W/O BEHAVRL DISTURB Status: Acute Current Visit: Yes (4) BPH NOS w ur obs/LUTS SNOMED Code(s): 904507504, 056061854 Code(s): N40.1 - BENIGN PROSTATIC HYPERPLASIA WITH LOWER URINARY TRACT SYMP Status: Acute Current Visit: Yes - Problem List Review Problem List Initiated/Reviewed/Updated: Yes - My Orders Last 24 Hours: My Active Orders 12/28/18 09:00 Cyanocobalamin (Vitamin B12) [Vitamin B12] 1,000 mcg PO DAILY Psyllium Husk/Aspartame [Metamucil Sugar Free] 1 pkt PO DAILY cefTRIAXone [Rocephin] 2 gm Sodium Chloride 0.9% [Normal Saline] 50 ml IV Q24H 12/28/18 09:16 Convert IV to Saline Lock [OM.PC] Routine 12/30/18 09:00 Cefdinir [Omnicef] 300 mg PO BID - Plan Plan:: ASSESSMENT AND PLAN - Compensated urinary tract infection - history of BPH with lower urinary tract symptoms. white count improving. Urine culture grew out a Proteus species. -saline lock IV fluids -Transition to cefdinir -Follow-up culture Acute kidney injury - moderate elevation of creatinine from baseline. creatinine has been improving throughout the hospital stay. Alzheimer's dementia - appears to be relatively mild at this time. No behavior issues. -Melatonin at bedtime -Continue home medication at bedtime Maintenance issues - - DVT prophylaxis - mechanical - GI prophylaxis - not indicated - Nutrition - regular Disposition - I would anticipate discharge back to the assisted living facility after the hospital stay, patient is stable for discharge today but unfortunately they are not able to accept him on the weekend. Discharge is planned for tomorrow. Primary care physician - [facility] Laurent Mcnamara M.D.
--- NOTE | 2018-12-29 12:27 | PCM.DCSUM1 ---
Discharge Summary - Hospital Course Brief History: 83-year-old male with history of Alzheimer's dementia, BPH with lower urinary tract symptoms who presented from assisted living with weakness and lethargy. He was admitted for management of a complicated urinary tract infection and acute kidney injury. Diagnosis: Stroke: No - Discharge Data Discharge Date: 12/30/18 Discharge Disposition: Home, Self-Care 01 Condition: Good - Discharge Diagnosis/Problem(s) (1) Complicated urinary tract infection SNOMED Code(s): 25706379 ICD Code: N39.0 - URINARY TRACT INFECTION, SITE NOT SPECIFIED Status: Acute Current Visit: Yes (2) Acute kidney injury SNOMED Code(s): 54043148, 91816594 ICD Code: N17.9 - ACUTE KIDNEY FAILURE, UNSPECIFIED Status: Acute Current Visit: Yes (3) Alzheimer's dementia without behavioral disturbance SNOMED Code(s): 37998751 ICD Code: G30.9 - ALZHEIMER'S DISEASE, UNSPECIFIED; F02.80 - DEMENTIA IN OTH DISEASES CLASSD ELSWHR W/O BEHAVRL DISTURB Status: Acute Current Visit: Yes Qualifiers: Alzheimer's disease onset: late-onset Qualified Code(s): G30.1 - Alzheimer' s disease with late onset; F02.80 - Dementia in other diseases classified elsewhere without behavioral disturbance (4) BPH NOS w ur obs/LUTS SNOMED Code(s): 375025311, 992186199 ICD Code: N40.1 - BENIGN PROSTATIC HYPERPLASIA WITH LOWER URINARY TRACT SYMP Status: Acute Current Visit: Yes - Patient Summary/Data Consults: Consultations 12/28/18 07:00 PT Evaluation and Treatment [CONS] Routine Please Evaluate and Treat. PT Reason for Consult: Strengthening This query below is only for informational purposes and is not editable. Hospital Course: Chauncey presented to the emergency room with lethargy and confusion. Workup in the emergency room suggested acute kidney injury and a complicated urinary tract infection. He was started on ceftriaxone and cultures were obtained. He did receive some IV fluids in the emergency room and these were continued in a gentle fashion overnight. His vital signs were stable throughout the first night of hospitalization. By the morning after admission he is feeling a little bit better but still remains slightly confused beyond his baseline. The morning after admission his urine culture is growing a gram-negative gissel and ceftriaxone was continued. His creatinine level has improved 1.3 from 1.6 but has not returned to baseline. Appetite was starting to improve so we did transition him to a saline lock. He remained stable and his next 24 hours was uneventful. On the second morning of hospitalization his urine culture returned growing a Proteus species. It was sensitive to the third-generation cephalosporins but not to first or second generation medications. I elected to transition him to oral medications with cefdinir. His creatinine is now down to 1.2. White blood cell count is normal. He is stable and safe for discharge at this time. He will need 10 additional doses of antibiotic therapy after hospital discharge. I do also recommend probiotics while he's on the antibiotics. He may follow-up as needed after the hospital stay. - Patient Instructions Diet: Regular Diet as Tolerated Activity: As Tolerated Showering/Bathing: May Shower Notify Provider of: Fever, Increased Pain, Nausea and/or Vomiting Other/Special Instructions: 1. Take cefdinir 300 mg twice daily for 10 more doses. 2. Take probiotic twice daily for 10 doses. 3. Continue usual home medications - Discharge Plan *PRESCRIPTION DRUG MONITORING PROGRAM REVIEWED*: Not Applicable *COPY OF PRESCRIPTION DRUG MONITORING REPORT IN PATIENT KACY: Not Applicable Prescriptions/Med Rec: Cefdinir [Omnicef] 300 mg PO BID #10 cap Lactobacillus Rhamnosus GG [Culturelle] 1 cap PO BID #10 cap Home Medications: Home Meds Cyanocobalamin (Vitamin B12) [Vitamin B12] 1,000 mg PO DAILY 12/04/15 [History] Cholecalciferol (Vitamin D3) [Vitamin D3] 2,000 unit PO DAILY 12/27/18 [History] Diclofenac Sodium [Voltaren] 100 gm TP QID 12/27/18 [History] Memantine [Namenda] 10 mg PO BEDTIME 12/27/18 [History] Psyllium [Metamucil] 1 gm PO DAILY 12/27/18 [History] Cefdinir [Omnicef] 300 mg PO BID #10 cap 12/29/18 [Rx] Lactobacillus Rhamnosus GG [Culturelle] 1 cap PO BID #10 cap 12/29/18 [Rx] Oxygen Therapy Mode: Room Air Patient Handouts: Cefdinir capsules, Urinary Tract Infection, Adult, Easy-to- Read Referrals: PCP,None [Primary Care Provider] - (f/u as needed ) - Discharge Summary/Plan Comment DC Time >30 min.: No - Patient Data Vitals - Most Recent: Last Vital Signs Temp 35.9 C 12/29/18 11:14 Pulse 60 12/29/18 11:14 Resp 12 12/29/18 11:14 BP 161/71 H 12/29/18 11:14 Pulse Ox 98 12/29/18 11:14 Weight - Most Recent: 61.689 kg I&O - Last 24 hours: Intake & Output 12/28/18 12/29/18 12/29/18 22:59 06:59 14:59 Intake Total 670 Output Total 175 Balance -175 670 Lab Results - Last 24 hrs: Laboratory Results - last 24 hr 12/29/18 12/29/18 Range/Units 05:22 05:22 WBC 9.4 (4.5-11.0) K/uL RBC 3.47 L (4.30-5.90) M/uL Hgb 9.7 L (12.0-15.0) g/dL Hct 31.3 L (40.0-54.0) % MCV 90 (80-98) fL MCH 28 (27-31) pg MCHC 31 L (32-36) % Plt Count 312 (150-400) K/uL Sodium 143 (140-148) mmol/L Potassium 4.1 (3.6-5.2) mmol/L Chloride 111 H (100-108) mmol/L Carbon Dioxide 25 (21-32) mmol/L Anion Gap 11.1 (5.0-14.0) mmol/L BUN 20 H (7-18) mg/dL Creatinine 1.2 (0.8-1.3) mg/dL Est Cr Clr Drug Dosing 37.94 mL/min Estimated GFR (MDRD) 58 L (>60) Glucose 88 (74-106) mg/dL Calcium 10.2 H (8.5-10.1) mg/dL [facility] Results - Last 24 hrs: Microbiology 12/27/18 08:48 Aerobic Blood Culture - Preliminary Blood - Arm, Right NO GROWTH AFTER 2 DAYS Anaerobic Blood Culture - Preliminary NO GROWTH AFTER 2 DAYS 12/27/18 08:45 Aerobic Blood Culture - Preliminary Blood - Venous - Iv Start NO GROWTH AFTER 2 DAYS Anaerobic Blood Culture - Preliminary NO GROWTH AFTER 2 DAYS 12/27/18 08:45 Urine Culture - Final Urine, Clean Catch Proteus Hauseri Med Orders - Current: Current Medications Acetaminophen (Tylenol) 650 mg PO Q4H PRN PRN Reason: Pain (Mild 1-3)/fever Cefdinir (Omnicef) 300 mg PO BID [facility] Cyanocobalamin (Vitamin B12) 1,000 mcg PO DAILY [facility] Last Admin: 12/29/18 08:31 Dose: 1,000 mcg Lactobacillus Rhamnosus (Culturelle) 1 cap PO BID [facility] Last Admin: 12/29/18 08:31 Dose: 1 cap Magnesium Hydroxide (Milk Of Magnesia) 30 ml PO Q12H PRN PRN Reason: Constipation Melatonin (Melatonin) 9 mg PO BEDTIME [facility] Last Admin: 12/28/18 21:31 Dose: 9 mg Memantine (Namenda) 10 mg PO BEDTIME [facility] Last Admin: 12/28/18 21:32 Dose: 10 mg Ondansetron HCl (Zofran Odt) 4 mg PO Q6H PRN PRN Reason: Nausea able to take PO Ondansetron HCl (Zofran) 4 mg IV Q6H PRN PRN Reason: Nausea/Vomiting Psyllium Husk (Metamucil Sugar Free) 1 pkt PO DAILY [facility] Last Admin: 12/29/18 08:31 Dose: 1 pkt Senna/Docusate Sodium (Senna Plus) 1 tab PO BID PRN PRN Reason: Constipation Discontinued Medications Sodium Chloride (Normal Saline) 1,000 mls @ [facility] Admin: 12/27/18 08:48 Dose: 1,000 mls/hr Ceftriaxone Sodium 2 gm/ (Sodium Chloride) 50 mls @ 100 mls/hr IV ONETIME ONE Stop: 12/27/18 09:02 Last Admin: 12/27/18 08:58 Dose: 100 mls/hr Sodium Chloride (Normal Saline) 1,000 mls @ 100 mls/hr IV ASDIRECTED [facility] Last Admin: 12/28/18 05:36 Dose: 100 mls/hr Ceftriaxone Sodium 2 gm/ (Sodium Chloride) 50 mls @ 100 mls/hr IV Q24H [facility] Last Admin: 12/29/18 08:37 Dose: 100 mls/hr Pneumococcal Polyvalent Vaccine (Pneumovax 23) 0.5 ml SUBCUT .ONCE ONE Stop: 12/28/18 14:01 Last Admin: 12/28/18 13:38 Dose: 0.5 ml - Exam Quality Assessment: Denies: Supplemental Oxygen General: Reports: Alert, Cooperative, No Acute Distress. Denies: Oriented Lungs: Reports: Normal Respiratory Effort Cardiovascular: Reports: Regular Rate, Regular Rhythm GI/Abdominal Exam: Soft, No Distention Extremities: No Pedal Edema Psy/Mental Status: Reports: Alert, Normal Affect
[2018-12-29] MEDS: Melatonin 3 MG Tab PO SCH (20:31)
[2018-12-29] MEDS: Memantine 10 MG Tab PO SCH (20:31)
[2018-12-30] MEDS: Lactobacillus Rhamnosus GG (Probiotic) Cap PO SCH (08:42)
[2018-12-30] MEDS: Cyanocobalamin (Vitamin B12) 1,000 MCG Tab PO SCH (08:42)
[2018-12-30] MEDS: Psyllium Husk Powder Sugar Free 5.85 GM Packet PO SCH (08:43)
[2018-12-30] MEDS ORDERED: Cefdinir 300 MG Cap PO SCH (09:00)
[2018-12-30 11:04] VITALS: BP 151/58; PULSE 55
== END 2018-12-30 12:55 | DRG 690 ==
LOC: JP.ED 08:15 → UNDOADMIN 10:07 → JP.MS 10:07 → UNDODISIN 12-30 12:55
PROVIDERS: ADMIT Internal Medicine; ATTEND Hospitalist
PROC: 3E0234Z Introduction of Serum, Toxoid and Vaccine into Muscle, Percutaneous Approach (ICD-10-PCS; principal; 2018-12-27)
DX: N39.0 Urinary tract infection, site not specified (principal); N17.9 Acute kidney failure, unspecified; Z66 Do not resuscitate; B96.4 Proteus (mirabilis) (morganii) as the cause of diseases classified elsewhere; N40.1 Benign prostatic hyperplasia with lower urinary tract symptoms; I10 Essential (primary) hypertension; G30.9 Alzheimer's disease, unspecified; R53.1 Weakness; R41.0 Disorientation, unspecified; F02.80 Dementia in other diseases classified elsewhere, unspecified severity, without behavioral disturbance, psychotic disturbance, mood disturbance, and anxiety; Z23 Encounter for immunization; H40.9 Unspecified glaucoma; K21.9 Gastro-esophageal reflux disease without esophagitis; M19.90 Unspecified osteoarthritis, unspecified site; E53.8 Deficiency of other specified B group vitamins; Z87.440 Personal history of urinary (tract) infections; L65.9 Nonscarring hair loss, unspecified; I45.10 Unspecified right bundle-branch block; F20.9 Schizophrenia, unspecified
CPT/HCPCS: 36415; 80053; 81001; 83605; 85025; 87040 ×2; 87086; 87088; 87186; 90471; 96365; 99285; J0696; J7030; J7050; 80048; 85027; 90732; 97161-GP; 99284; A9270-GY; G0009

== ENCOUNTER 2019-01-08 16:59 | Inpatient (IN) | payer MEDICAID, MEDICARE, OTHER ==
[2019-01-08] MEDS ORDERED: Acetaminophen 325 MG Tab PO ONE (17:06)
--- NOTE | 2019-01-08 17:29 | EDM.PDOC ---
ED HPI GENERAL MEDICAL PROBLEM - General Chief Complaint: Fever Stated Complaint: MEDICAL [facility] Time Seen by Provider: 01/08/19 17:15 Source of Information: Reports: Family, Old Records History Limitations: Reports: Other (dementia) - History of Present Illness INITIAL COMMENTS - FREE TEXT/NARRATIVE: 83 yo male with recurrent UTI's, his last was about 1.5 weeks ago was sent from his residence at [facility] for evaluation of a fever. Had acetaminophen 650 mg 3 hrs before arrival. No coughing or SOB. Has dementia. Daughter says he is much more subdued this afternoon than normal. Onset: Today Duration: Hour(s):, Constant Location: Reports: Other (uncertain) Quality: Reports: Other (no reported pain) Severity: Mild Improves with: Reports: Medication (acetaminophen) Worsens with: Reports: Other (uncertain) Context: Reports: Other (see HPI) Associated Symptoms: Reports: Fever/Chills Treatments RETAIL ASSISTANT MANAGER: Reports: Acetaminophen - Related Data Allergies Allergy/AdvReac Type Severity Reaction Status Date / Time No Known Allergies Allergy Verified 01/08/19 17:03 Home Meds: Home Meds Cyanocobalamin (Vitamin B12) [Vitamin B12] 1,000 mg PO DAILY 12/04/15 [History] Cholecalciferol (Vitamin D3) [Vitamin D3] 2,000 unit PO DAILY 12/27/18 [History] Diclofenac Sodium [Voltaren] 100 gm TP QID 12/27/18 [History] Memantine [Namenda] 10 mg PO BEDTIME 12/27/18 [History] Psyllium [Metamucil] 1 gm PO DAILY 12/27/18 [History] Cefdinir [Omnicef] 300 mg PO BID #10 cap 12/29/18 [Rx] Lactobacillus Rhamnosus GG [Culturelle] 1 cap PO BID #10 cap 12/29/18 [Rx] Paliperidone Palmitate [Invega Sustenna] 0.25 ml IM ASDIRECTED 01/08/19 [History ] Past Medical History HEENT History: Reports: Cataract, Glaucoma, Impaired Vision Other HEENT History: dry eye Cardiovascular History: Reports: Hypertension Other Cardiovascular History: RBBB Gastrointestinal History: Reports: GERD Genitourinary History: Reports: Other (See Below) Other Genitourinary History: chronic indwelling cassidy since 2015 Musculoskeletal History: Reports: Arthritis Neurological History: Reports: Other (See Below) Other Neuro History: dementia Psychiatric History: Reports: Dementia, Schizophrenia Hematologic History: Reports: B12 Deficiency Dermatologic History: Reports: Other (See Below) Other Dermatologic History: alopecia - Infectious Disease History Infectious Disease History: Reports: Chicken Pox - Past Surgical History HEENT Surgical History: Reports: Cataract Surgery Male Surgical History: Reports: Other (See Below) Other Male Surgeries/Procedures: BPH Social & Family History - Family History Family Medical History: Unobtainable - Tobacco Use Smoking Status *Q: Never Smoker - Caffeine Use Caffeine Use: Reports: Other Other Caffeine Use: unknown - Recreational Drug Use Recreational Drug Use: No ED ROS GENERAL - Review of Systems Review Of Systems: Unable To Obtain (due to dementia) Constitutional: Reports: Fever, Malaise GI/Abdominal: Reports: Hematochezia (today per daughter) ED EXAM, SEPSIS - Physical Exam Exam: See Below Exam Limited By: No Limitations General Appearance: Alert, WD/WN, No Apparent Distress Eye Exam: Bilateral Eye: Normal Inspection Ears: Normal External Exam, Normal Canal, Hearing Grossly Normal, Normal TMs Nose: Normal Inspection, No Blood Throat/Mouth: Normal Inspection, Normal Lips, Normal Oropharynx, Normal Voice, No Airway Compromise Head: Atraumatic, Normocephalic Neck: Normal Inspection Respiratory/Chest: No Respiratory Distress, Lungs Clear, Normal Breath Sounds, No Accessory Muscle Use Cardiovascular: Regular Rate, Rhythm, No Edema GI/Abdominal Exam: Normal Bowel Sounds, Soft, Non-Tender, No Distention Extremities: Normal Inspection, Normal Range of Motion, Non-Tender, No Pedal Edema Neurological: Alert, Oriented, CN II-XII Intact, Normal Cognition, No Motor/ Sensory Deficits Psychiatric: Normal Affect, Normal Mood Skin: Warm, Dry, Intact, Normal Color, No Rash Course - Vital Signs Text/Narrative:: Post-void bladder scan 468 ml Last Recorded V/S: Last Vital Signs Temp 38.1 C 01/08/19 17:25 Pulse 91 01/08/19 17:00 Resp 20 01/08/19 17:00 BP 178/91 H 01/08/19 17:00 Pulse Ox 96 01/08/19 17:00 - Orders/Labs/Meds Orders: Active Orders 24 hr Category Date Time Status Bladder Scan [RC] ASDIRECTED Care 01/08/19 17:26 Active Chest 2V [CR] Stat Exams 01/08/19 17:29 Taken BASIC METABOLIC PANEL,BMP [CHEM] Stat Lab 01/08/19 17:23 Ordered CULTURE URINE [RM] Stat Lab 01/08/19 17:32 Received Labs: Laboratory Tests 01/08/19 01/08/19 Range/Units 17:18 17:23 WBC 33.2 H* (4.5-11.0) K/uL RBC 4.51 (4.30-5.90) M/uL Hgb 12.6 D (12.0-15.0) g/dL Hct 40.0 (40.0-54.0) % MCV 89 (80-98) fL MCH 28 (27-31) pg MCHC 32 (32-36) % Plt Count 456 H (150-400) K/uL Urine Color Yellow Urine Appearance Slightly cloudy Urine pH 6.0 (4.5-8.0) Ur Specific [place] 1.015 (1.008-1.030) Urine Protein Negative (NEGATIVE) mg/dL Urine Glucose (UA) Normal (NEGATIVE) mg/dL Urine Ketones Negative (NEGATIVE) mg/dL Urine Occult Blood Trace (NEGATIVE) Urine Nitrite Negative (NEGAITVE) Urine Bilirubin Negative (NEGATIVE) Urine Urobilinogen Normal (NORMAL) mg/dL Ur Leukocyte Esterase Trace (NEGATIVE) Urine RBC 0-5 (0-5) Urine WBC 10-20 H (0-5) Ur Epithelial Cells Rare Amorphous Sediment Not seen Urine Bacteria Rare Urine Mucus Not seen Meds: Medications Discontinued Medications Generic Name Dose Route Start Last Admin Trade Name Freq PRN Reason Stop Dose Admin Acetaminophen 650 mg 01/08/19 17:06 01/08/19 17:25 Tylenol PO 01/08/19 17:07 650 mg NOW ONE Administration - Radiology Interpretation Free Text/Narrative:: CXR-neg Departure - Departure Time of Disposition: 18:00 Disposition: Admitted As Inpatient 64 Condition: Fair Clinical Impression: UTI (urinary tract infection) Qualifiers: Urinary tract infection type: site unspecified Hematuria presence: without hematuria Qualified Code(s): N39.0 - Urinary tract infection, site not specified Elevated WBC count Qualifiers: Leukocytosis type: unspecified Qualified Code(s): D72.829 - Elevated white blood cell count, unspecified - Discharge Information *PRESCRIPTION DRUG MONITORING PROGRAM REVIEWED*: No *COPY OF PRESCRIPTION DRUG MONITORING REPORT IN PATIENT KACY: No Referrals: PCP,None [Primary Care Provider] - Forms: ED Department Discharge - My Orders Last 24 Hours: My Active Orders 01/08/19 17:23 BASIC METABOLIC PANEL,BMP [CHEM] Stat 01/08/19 17:26 Bladder Scan [RC] ASDIRECTED 01/08/19 17:29 Chest 2V [CR] Stat 01/08/19 17:32 CULTURE URINE [RM] Stat - Assessment/Plan Last 24 Hours: My Active Orders 01/08/19 17:23 BASIC METABOLIC PANEL,BMP [CHEM] Stat 01/08/19 17:26 Bladder Scan [RC] ASDIRECTED 01/08/19 17:29 Chest 2V [CR] Stat 01/08/19 17:32 CULTURE URINE [RM] Stat
--- NOTE | 2019-01-08 18:10 | CRLCR ---
INDICATION: Fever COMPARISON: none TECHNIQUE: Frontal and lateral views of the chest FINDINGS: There is mild left basilar atelectasis. There is no pulmonary consolidation, pleural effusion, or pneumothorax. The cardiac silhouette is normal in size. A moderate-sized hiatal hernia is present. IMPRESSION: No pulmonary infiltrate. Hiatal hernia. Dictated by Henrietta Solorzano MD @ Jan 08 2019 6:07PM Signed by Dr. Henrietta Solorzano @ Jan 08 2019 6:09PM
[2019-01-08] MEDS ORDERED: Sodium Chloride 0.9% 10 ML Syringe FLUSH PRN (18:18)
--- NOTE | 2019-01-08 18:28 | PCM.HP ---
H&P History of Present Illness - General Date of Service: 01/08/19 Admit Problem/Dx: Admission Diagnosis/Problem Admission Diagnosis/Problem Complicated urinary tract infection Source of Information: Patient, Family, Provider History Limitations: Reports: Altered Mental Status (mild confusion) - History of Present Illness Initial Comments - Free Text/Narative: CC: fever HPI: Chauncey presents to the emergency room from a local assisted living with a fever. He is a little bit confused and does not recall the events of the day but is able to tell me about how he feels at this time. History is gathered from emergency room personnel and his daughter. They report that staff at the assisted living noticed he was weak and a little bit confused. He had a fever of 101.2 there. An ambulance was summoned so he could be brought to the emergency room for evaluation. Upon arrival to the emergency room is febrile to 101.8. The patient reports that he feels fine. No complaints of headache, shortness of breath, abdominal pain, nausea. He does not recall any diarrhea and none was reported from the assisted living facility. He says that passing urine has been fine but it was noted that he had greater than 500 mL of urine on bladder scan. He does not report any dysuria. No skin rashes. No sick contacts. Workup in the emergency room revealed leukocytosis with a white blood cell count of 33,000. Chest x-ray is clear. Urine not strongly suggestive of infection. Examination is benign other than the fever. Urinary tract infection is suspected with his urinary retention. Patient will be receiving antibiotics and will be admitted to the hospital because of his urinary retention, confusion , weakness and recurrent infection. - Related Data Allergies/Adverse Reactions: Allergies Allergy/AdvReac Type Severity Reaction Status Date / Time No Known Allergies Allergy Verified 01/08/19 17:03 Home Medications: Home Meds Cyanocobalamin (Vitamin B12) [Vitamin B12] 1,000 mg PO DAILY 12/04/15 [History] Cholecalciferol (Vitamin D3) [Vitamin D3] 2,000 unit PO DAILY 12/27/18 [History] Diclofenac Sodium [Voltaren] 100 gm TP QID 12/27/18 [History] Memantine [Namenda] 10 mg PO BEDTIME 12/27/18 [History] Psyllium [Metamucil] 1 gm PO DAILY 12/27/18 [History] Lactobacillus Rhamnosus GG [Culturelle] 1 cap PO BID #10 cap 12/29/18 [Rx] Paliperidone Palmitate [Invega Sustenna] 0.25 ml IM ASDIRECTED 01/08/19 [History ] Past Medical History HEENT History: Reports: Cataract, Glaucoma, Impaired Vision Other HEENT History: dry eye Cardiovascular History: Reports: Hypertension Other Cardiovascular History: RBBB Gastrointestinal History: Reports: GERD Genitourinary History: Reports: Other (See Below) Other Genitourinary History: chronic indwelling cassidy since 2015 Musculoskeletal History: Reports: Arthritis Neurological History: Reports: Other (See Below) Other Neuro History: dementia Psychiatric History: Reports: Dementia, Schizophrenia Hematologic History: Reports: B12 Deficiency Dermatologic History: Reports: Other (See Below) Other Dermatologic History: alopecia - Infectious Disease History Infectious Disease History: Reports: Chicken Pox - Past Surgical History HEENT Surgical History: Reports: Cataract Surgery Male Surgical History: Reports: Other (See Below) Other Male Surgeries/Procedures: BPH Social & Family History - Family History Family Medical History: Unobtainable - Tobacco Use Smoking Status *Q: Never Smoker - Caffeine Use Caffeine Use: Reports: Other Other Caffeine Use: unknown - Alcohol Use Alcohol Use History: No - Recreational Drug Use Recreational Drug Use: No H&P Review of Systems - Review of Systems: Review Of Systems: See Below Free Text/Narrative: A complete 12 point review of systems was obtained. Pertinent positives and negatives are noted in the history of present illness. All other systems were reviewed and were negative except as noted. Exam - Exam Exam: See Below - Vital Signs Vital Signs: Last Vital Signs Temp 38.1 C 01/08/19 17:25 Pulse 88 01/08/19 17:54 Resp 20 01/08/19 17:00 BP 161/91 H 01/08/19 17:54 Pulse Ox 94 L 01/08/19 17:54 Weight: 62.142 kg - Exam Quality Assessment: No: Supplemental Oxygen General: Alert, Cooperative. No: Oriented, Mild Distress HEENT: Conjunctiva Clear. No: Mucosa Moist & [place] (dry), Scleral Icterus Neck: Supple, Trachea Midline. No: Lymphadenopathy Lungs: Clear to Auscultation, Normal Respiratory Effort Cardiovascular: Regular Rate, Regular Rhythm. No: Systolic Murmur GI/Abdominal Exam: Normal Bowel Sounds, Soft, Non-Tender, No Distention Extremities: No Pedal Edema. No: Increased Warmth Peripheral Pulses: 2+: Dorsalis Pedis (L), Dorsalis Pedis (R) Skin: Warm, Dry Neuro Extensive - Mental Status: Alert, Nl Response to Commands. No: Oriented x3 Neuro Extensive - Motor, Sensory, Reflexes: No: Dysarthria, Abnormal Motor, Tremor Psychiatric: Alert, Normal Affect - Patient Data Lab Results Last 24 hrs: Laboratory Results - last 24 hr 01/08/19 01/08/19 01/08/19 Range/Units 17:18 17:23 17:23 WBC 33.2 H* (4.5-11.0) K/uL RBC 4.51 (4.30-5.90) M/uL Hgb 12.6 D (12.0-15.0) g/dL Hct 40.0 (40.0-54.0) % MCV 89 (80-98) fL MCH 28 (27-31) pg MCHC 32 (32-36) % Plt Count 456 H (150-400) K/uL Sodium 138 L (140-148) mmol/L Potassium 4.6 (3.6-5.2) mmol/L Chloride 103 (100-108) mmol/L Carbon Dioxide 25 (21-32) mmol/L Anion Gap 14.6 H (5.0-14.0) mmol/L BUN 19 H (7-18) mg/dL Creatinine 1.2 (0.8-1.3) mg/dL Est Cr Clr Drug Dosing 39.15 mL/min Estimated GFR (MDRD) 58 L (>60) Glucose 131 H (74-106) mg/dL Calcium 10.1 (8.5-10.1) mg/dL Urine Color Yellow Urine Appearance Slightly cloudy Urine pH 6.0 (4.5-8.0) Ur Specific [place] 1.015 (1.008-1.030) Urine Protein Negative (NEGATIVE) mg/dL Urine Glucose (UA) Normal (NEGATIVE) mg/dL Urine Ketones Negative (NEGATIVE) mg/dL Urine Occult Blood Trace (NEGATIVE) Urine Nitrite Negative (NEGAITVE) Urine Bilirubin Negative (NEGATIVE) Urine Urobilinogen Normal (NORMAL) mg/dL Ur Leukocyte Esterase Trace (NEGATIVE) Urine RBC 0-5 (0-5) Urine WBC 10-20 H (0-5) Ur Epithelial Cells Rare Amorphous Sediment Not seen Urine Bacteria Rare Urine Mucus Not seen Result Diagrams: 01/08/19 17:23 01/08/19 17:23 Imaging Impressions Last 24 hrs: CXR - images personally reviewed - lungs are clear with no mass, infiltrate or effusion. heart size is normal. Large hiatal hernia *Q Meaningful Use (ADM) - VTE Risk Assess *Q Each Risk Factor Represents 1 Point: None Total Score 1 Point Risk Factors: 0 Each Risk Factor Represents 2 Points: None Total Score 2 Point Risk Factors: 0 Each Risk Factor Represents 3 Points: Age 75 Years or Greater Total Score 3 Point Risk Factors: 3 Each Risk Factor Represents 5 Points: None Total Score 5 Point Risk Factors: 0 Venous Thromboembolism Risk Factor Score *Q: 3 - Problem List (1) Complicated urinary tract infection SNOMED Code(s): 29294653 ICD Code: N39.0 - URINARY TRACT INFECTION, SITE NOT SPECIFIED Status: Acute Current Visit: No (2) BPH NOS w ur obs/LUTS SNOMED Code(s): 191433052, 643484201 ICD Code: N40.1 - BENIGN PROSTATIC HYPERPLASIA WITH LOWER URINARY TRACT SYMP Status: Acute Current Visit: No (3) Alzheimer's dementia without behavioral disturbance SNOMED Code(s): 39749815 ICD Code: G30.9 - ALZHEIMER'S DISEASE, UNSPECIFIED; F02.80 - DEMENTIA IN OTH DISEASES CLASSD ELSWHR W/O BEHAVRL DISTURB Status: Chronic Current Visit: No Qualifiers: Alzheimer's disease onset: late-onset Qualified Code(s): G30.1 - Alzheimer' s disease with late onset; F02.80 - Dementia in other diseases classified elsewhere without behavioral disturbance (4) CKD (chronic kidney disease), stage III SNOMED Code(s): 737629061 ICD Code: N18.3 - CHRONIC KIDNEY DISEASE, STAGE 3 (MODERATE) Status: Chronic Current Visit: Yes Problem List Initiated/Reviewed/Updated: Yes Orders Last 24hrs: Active Orders 24 hr Category Date Time Status Patient Status Manage Transfer [TRANSFER] Routine ADT 01/08/19 18:20 Ordered Bladder Scan [RC] ASDIRECTED Care 01/08/19 17:26 Active Peripheral IV Care [RC] . DIRECTED Care 01/08/19 18:18 Active CULTURE URINE [RM] Stat Lab 01/08/19 17:32 Received Ciprofloxacin in D5W [Cipro in D5W 400 MG/200 ML] 400 Med 01/08/19 18:30 Active mg Premix Bag 1 bag IV Q12H Sodium Chloride 0.9% [Normal Saline] 1,000 ml Med 01/08/19 18:30 Ordered IV ASDIRECTED Sodium Chloride 0.9% [Saline Flush] Med 01/08/19 18:18 Active 10 ml FLUSH ASDIRECTED PRN Peripheral IV Insertion Adult [OM.PC] Routine Oth 01/08/19 18:18 Ordered Resuscitation Status Routine Resus Stat 01/08/19 18:22 Ordered Medication Orders Ciprofloxacin/Dextrose 400 mg/ (Premix) 200 mls @ 200 mls/hr IV Q12H RICHARD Sodium Chloride (Normal Saline) 1,000 mls @ 100 mls/hr IV ASDIRECTED RICHARD Sodium Chloride (Saline Flush) 10 ml FLUSH ASDIRECTED PRN PRN Reason: Keep Vein Open Assessment/Plan Comment:: ASSESSMENT AND PLAN - Complicated urinary tract infection - this is the suspected source of his fever with no other obvious source. History of recurrent infections. History of intermittent difficulties with urinary retention and currently struggling with urinary retention based on bladder scan. Vital signs are stable at this point and there is no strong evidence to support sepsis. He has had recent antibiotics. With his weakness and confusion he is not safe for outpatient management. -antibiotic coverage with ciprofloxacin -Gentle IV fluids overnight -Start tamsulosin to help with urinary retention -Consider Cassidy catheter if unable to void -Follow-up urine culture Alzheimer's disease without behavioral disturbance - Stable and no issues at this time. -Continue home medications -Melatonin at bedtime Stage III chronic kidney disease - Creatinine at baseline at this time. -Gentle fluids and repeat labs in the morning Maintenance issues - - DVT prophylaxis - mechanical - GI prophylaxis - Not indicated - Nutrition - Regular diet - Cassidy catheter - Not indicated currently but may be necessary if urinary retention persists CODE STATUS - DNR/DNI per advance directive Admission justification - This patient will be admitted for inpatient services and is medically appropriate meeting medical necessity for inpatient admission as outlined in my documentation. I reasonably expect the patient will require inpatient services that span a period time over 2 midnights. I reasonably expect this patient to be discharged or transferred within 96 hours [facility]. Disposition - Anticipate discharge back to assisted living after the hospital stay Primary care physician - [place] [facility] Laurent Mcnamara M.D.
[2019-01-08] MEDS: Sodium Chloride 0.9% 1,000 ML IV SCH (18:32)
[2019-01-08] MEDS: Ciprofloxacin in D5W 400 MG in Premix Bag 1 BAG IV SCH ×2 (18:32)
[2019-01-08] MEDS ORDERED: Ondansetron 4 MG/2 ML SDV IV PRN (19:02)
[2019-01-08] MEDS ORDERED: Ondansetron 4 MG Tab.DIS PO PRN (19:02)
[2019-01-08] MEDS ORDERED: Magnesium Hydroxide 400 MG/5 ML Susp 30 ML Cup PO PRN (19:02)
[2019-01-08] MEDS: Diclofenac Sodium 1% Gel 100 GM Tube TOP SCH (21:55)
[2019-01-08] MEDS: Tamsulosin 0.4 MG Cap.ER PO SCH (22:00)
[2019-01-08] MEDS: Lactobacillus Rhamnosus GG (Probiotic) Cap PO SCH (22:00)
[2019-01-08] MEDS: Memantine 10 MG Tab PO SCH (22:00)
[2019-01-08] MEDS: Melatonin 3 MG Tab PO SCH (22:00)
[2019-01-09] MEDS: Sodium Chloride 0.9% 1,000 ML IV SCH (05:32)
[2019-01-09] MEDS: Ciprofloxacin in D5W 400 MG in Premix Bag 1 BAG IV SCH ×2 (05:34)
[2019-01-09] MEDS ORDERED: Vancomycin 1 GM SDV ONE (05:53)
[2019-01-09] MEDS: Vancomycin 250 MG/5 ML ML Oral Solution PO SCH ×4 (06:04→21:22)
[2019-01-09] MEDS: Cyanocobalamin (Vitamin B12) 1,000 MCG Tab PO SCH (08:20)
[2019-01-09] MEDS: Cholecalciferol (Vitamin D3) 25 MCG Tab PO SCH (08:20)
[2019-01-09] MEDS: Lactobacillus Rhamnosus GG (Probiotic) Cap PO SCH ×2 (08:20→21:22)
[2019-01-09] MEDS: Diclofenac Sodium 1% Gel 100 GM Tube TOP SCH ×3 (08:38→21:21)
[2019-01-09] MEDS: Acetaminophen 325 MG Tab PO PRN ×2 (10:36→15:02)
--- NOTE | 2019-01-09 13:18 | PCM.PN ---
- General Info Date of Service: 01/09/19 Subjective Update: Overnight the patient developed diarrhea. After the fourth stool testing was sent for Clostridium difficile and this was positive. Patient does report some abdominal discomfort today and does not have an appetite. No fevers. He remains somewhat lethargic. He had an episode of agitation this afternoon. White blood cell count has risen further to more than 40,000 today. Functional Status: Reports: Pain Controlled - Review of Systems General: Reports: Weakness. Denies: Fever Gastrointestinal: Reports: Abdominal Pain, Diarrhea Psychiatric: Reports: Confusion - Patient Data Vitals - Most Recent: Last Vital Signs Temp 37.9 C 01/09/19 10:36 Pulse 100 01/09/19 10:31 Resp 18 01/09/19 10:31 BP 128/56 L 01/09/19 10:31 Pulse Ox 93 L 01/09/19 10:31 Weight - Most Recent: 60.781 kg I&O - Last 24 Hours: Intake & Output 01/08/19 01/09/19 01/09/19 22:59 06:59 14:59 Intake Total 1920 Balance 1920 Lab Results Last 24 Hours: Laboratory Results - last 24 hr 01/08/19 01/08/19 01/08/19 Range/Units 17:18 17:23 17:23 WBC 33.2 H* (4.5-11.0) K/uL RBC 4.51 (4.30-5.90) M/uL Hgb 12.6 D (12.0-15.0) g/dL Hct 40.0 (40.0-54.0) % MCV 89 (80-98) fL MCH 28 (27-31) pg MCHC 32 (32-36) % Plt Count 456 H (150-400) K/uL Sodium 138 L (140-148) mmol/L Potassium 4.6 (3.6-5.2) mmol/L Chloride 103 (100-108) mmol/L Carbon Dioxide 25 (21-32) mmol/L Anion Gap 14.6 H (5.0-14.0) mmol/L BUN 19 H (7-18) mg/dL Creatinine 1.2 (0.8-1.3) mg/dL Est Cr Clr Drug Dosing 39.15 mL/min Estimated GFR (MDRD) 58 L (>60) Glucose 131 H (74-106) mg/dL Calcium 10.1 (8.5-10.1) mg/dL Urine Color Yellow Urine Appearance Slightly cloudy Urine pH 6.0 (4.5-8.0) Ur Specific [place] 1.015 (1.008-1.030) Urine Protein Negative (NEGATIVE) mg/dL Urine Glucose (UA) Normal (NEGATIVE) mg/dL Urine Ketones Negative (NEGATIVE) mg/dL Urine Occult Blood Trace (NEGATIVE) Urine Nitrite Negative (NEGAITVE) Urine Bilirubin Negative (NEGATIVE) Urine Urobilinogen Normal (NORMAL) mg/dL Ur Leukocyte Esterase Trace (NEGATIVE) Urine RBC 0-5 (0-5) Urine WBC 10-20 H (0-5) Ur Epithelial Cells Rare Amorphous Sediment Not seen Urine Bacteria Rare Urine Mucus Not seen 01/09/19 Range/Units 05:38 WBC 46.9 H* (4.5-11.0) K/uL RBC 3.66 L (4.30-5.90) M/uL Hgb 10.3 L D (12.0-15.0) g/dL Hct 32.6 L (40.0-54.0) % MCV 89 (80-98) fL MCH 28 (27-31) pg MCHC 32 (32-36) % Plt Count 385 (150-400) K/uL Sodium (140-148) mmol/L Potassium (3.6-5.2) mmol/L Chloride (100-108) mmol/L Carbon Dioxide (21-32) mmol/L Anion Gap (5.0-14.0) mmol/L BUN (7-18) mg/dL Creatinine (0.8-1.3) mg/dL Est Cr Clr Drug Dosing mL/min Estimated GFR (MDRD) (>60) Glucose (74-106) mg/dL Calcium (8.5-10.1) mg/dL Urine Color Urine Appearance Urine pH (4.5-8.0) Ur Specific [place] (1.008-1.030) Urine Protein (NEGATIVE) mg/dL Urine Glucose (UA) (NEGATIVE) mg/dL Urine Ketones (NEGATIVE) mg/dL Urine Occult Blood (NEGATIVE) Urine Nitrite (NEGAITVE) Urine Bilirubin (NEGATIVE) Urine Urobilinogen (NORMAL) mg/dL Ur Leukocyte Esterase (NEGATIVE) Urine RBC (0-5) Urine WBC (0-5) Ur Epithelial Cells Amorphous Sediment Urine Bacteria Urine Mucus Ramo Results Last 24 Hours: Microbiology 01/09/19 03:46 Clostridioides difficile (PCR) - Final Stool / Feces Positive C. Diff Toxin Med Orders - Current: Current Medications Acetaminophen (Tylenol) 650 mg PO Q4H PRN PRN Reason: Pain (Mild 1-3)/fever Last Admin: 01/09/19 10:36 Dose: 650 mg Cholecalciferol (Vitamin D3) 50 mcg PO DAILY [facility] Last Admin: 01/09/19 08:20 Dose: 50 mcg Cyanocobalamin (Vitamin B12) 1,000 mcg PO DAILY [facility] Last Admin: 01/09/19 08:20 Dose: 1,000 mcg Diclofenac Sodium (Voltaren 1% Gel) 0 gm TOP TID [facility] Last Admin: 01/09/19 08:38 Dose: 1 applic Sodium Chloride (Normal Saline) 1,000 mls @ 100 mls/hr IV ASDIRECTED [facility] Last Admin: 01/09/19 05:32 Dose: 100 mls/hr Lactobacillus Rhamnosus (Culturelle) 1 cap PO BID [facility] Last Admin: 01/09/19 08:20 Dose: 1 cap Magnesium Hydroxide (Milk Of Magnesia) 30 ml PO Q12H PRN PRN Reason: Constipation Melatonin (Melatonin) 9 mg PO BEDTIME [facility] Last Admin: 01/08/19 22:00 Dose: 9 mg Memantine (Namenda) 10 mg PO BEDTIME [facility] Last Admin: 01/08/19 22:00 Dose: 10 mg Ondansetron HCl (Zofran Odt) 4 mg PO Q6H PRN PRN Reason: Nausea able to take PO Ondansetron HCl (Zofran) 4 mg IV Q6H PRN PRN Reason: Nausea/Vomiting Senna/Docusate Sodium (Senna Plus) 1 tab PO BID PRN PRN Reason: Constipation Sodium Chloride (Saline Flush) 10 ml FLUSH ASDIRECTED PRN PRN Reason: Keep Vein Open Tamsulosin HCl (Flomax) 0.4 mg PO BEDTIME [facility] Last Admin: 01/08/19 22:00 Dose: 0.4 mg Vancomycin HCl (Vancocin 250 Mg/5 Ml Soln) 125 mg PO QID [facility] Last Admin: 01/09/19 10:26 Dose: 125 mg Discontinued Medications Acetaminophen (Tylenol) 650 mg PO NOW ONE Stop: 01/08/19 17:07 Last Admin: 01/08/19 17:25 Dose: 650 mg Ciprofloxacin/Dextrose 400 mg/ (Premix) 200 mls @ 200 mls/hr IV Q12H [facility] Last Admin: 01/09/19 05:34 Dose: 200 mls/hr Vancomycin HCl (Vancomycin) Confirm Administered Dose 1 gm .ROUTE .STK-MED ONE Stop: 01/09/19 05:54 Last Admin: 01/09/19 06:04 Dose: Not Given - Exam Quality Assessment: No: Supplemental Oxygen General: Alert, Cooperative, No Acute Distress, Lethargic. No: Oriented HEENT: Pupils Equal Lungs: Normal Respiratory Effort Cardiovascular: Regular Rate, Regular Rhythm GI/Abdominal Exam: Soft, Non-Tender, No Distention Extremities: No Pedal Edema Skin: Warm, Dry Psy/Mental Status: Alert, Normal Affect - Problem List & Annotations (1) Clostridioides difficile diarrhea SNOMED Code(s): 2893628141538 Code(s): A04.72 - ENTEROCOLITIS D/T CLOSTRIDIUM DIFFICILE, NOT SPCF RECUR Status: Acute Current Visit: Yes (2) Complicated urinary tract infection SNOMED Code(s): 15721916 Code(s): N39.0 - URINARY TRACT INFECTION, SITE NOT SPECIFIED Status: Ruled- out Current Visit: No (3) BPH NOS w ur obs/LUTS SNOMED Code(s): 857277049, 151874499 Code(s): N40.1 - BENIGN PROSTATIC HYPERPLASIA WITH LOWER URINARY TRACT SYMP Status: Acute Current Visit: No (4) Alzheimer's dementia without behavioral disturbance SNOMED Code(s): 79105375 Code(s): G30.9 - ALZHEIMER'S DISEASE, UNSPECIFIED; F02.80 - DEMENTIA IN OTH DISEASES CLASSD ELSWHR W/O BEHAVRL DISTURB Status: Chronic Current Visit: No Qualifiers: Alzheimer's disease onset: late-onset Qualified Code(s): G30.1 - Alzheimer' s disease with late onset; F02.80 - Dementia in other diseases classified elsewhere without behavioral disturbance (5) CKD (chronic kidney disease), stage III SNOMED Code(s): 333961607 Code(s): N18.3 - CHRONIC KIDNEY DISEASE, STAGE 3 (MODERATE) Status: Chronic Current Visit: Yes - Problem List Review Problem List Initiated/Reviewed/Updated: Yes - My Orders Last 24 Hours: My Active Orders 01/08/19 18:18 Peripheral IV Care [RC] . DIRECTED Sodium Chloride 0.9% [Saline Flush] 10 ml FLUSH ASDIRECTED PRN Peripheral IV Insertion Adult [OM.PC] Routine 01/08/19 18:22 Resuscitation Status Routine 01/08/19 18:30 Sodium Chloride 0.9% [Normal Saline] 1,000 ml IV ASDIRECTED 01/08/19 19:02 Patient Status [ADT] Routine Intake and Output [RC] QSHIFT Notify Provider Vital Signs [RC] ASDIRECTED Oxygen Therapy [RC] PRN Up With Assistance [RC] ASDIRECTED VTE/DVT Education [RC] Per Unit Routine Vital Signs [RC] Q4H Acetaminophen [Tylenol] 650 mg PO Q4H PRN Docusate Sodium/Sennosides [Senna Plus] 1 tab PO BID PRN Magnesium Hydroxide [Milk of Magnesia] 30 ml PO Q12H PRN Ondansetron [Zofran ODT] 4 mg PO Q6H PRN Ondansetron [Zofran] 4 mg IV Q6H PRN Antiembolic Hose [OM.PC] Routine 01/08/19 21:00 Diclofenac Sodium [Voltaren 1% Gel] 0 gm TOP TID Lactobacillus Rhamnosus GG [Culturelle] 1 cap PO BID Melatonin 9 mg PO BEDTIME Memantine [Namenda] 10 mg PO BEDTIME Tamsulosin [Flomax] 0.4 mg PO BEDTIME 01/08/19 Dinner Regular Diet [DIET] 01/09/19 06:00 Vancomycin [Vancocin 250 MG/5 ML Soln] 125 mg PO QID 01/09/19 09:00 Cholecalciferol (Vitamin D3) [Vitamin D3] 50 mcg PO DAILY Cyanocobalamin (Vitamin B12) [Vitamin B12] 1,000 mcg PO DAILY 01/09/19 13:16 Isolation [COMM] Routine 01/10/19 05:00 BASIC METABOLIC PANEL,BMP [CHEM] Timed CBC WITH AUTO DIFF [HEME] Timed - Plan Plan:: ASSESSMENT AND PLAN - Clostridium difficile colitis - patient developed diarrhea shortly after admission and testing was positive for Clostridium difficile. Mild pain at this time. Borderline hypotension but no tachycardia. Patient still lethargic. White blood cell count has risen since yesterday. -Vancomycin 125 mg daily 2 weeks -Contact precautions -Probiotics -Continue IV fluids Acute urinary retention secondary to BPH - initially some concern for infection but now definite source of infection identified with the Clostridium difficile. Urinary tract infection unlikely. Patient seems to be passing urine okay at this time. -Continue tamsulosin Alzheimer's disease without behavioral disturbance - some agitation this afternoon. -Continue home medications -Melatonin at bedtime -Haldol for severe agitation Stage III chronic kidney disease - Creatinine stable. -Gentle fluids and repeat labs in the morning Maintenance issues - - DVT prophylaxis - mechanical - GI prophylaxis - Not indicated - Nutrition - Regular diet - Prather catheter - Not indicated currently but may be necessary if urinary retention persists Disposition - Anticipate discharge back to assisted living after the hospital stay Primary care physician - [place] [facility] Laurent Mcnamara M.D.
[2019-01-09] MEDS ORDERED: Haloperidol Lactate 5 MG/ML SDV IVPUSH PRN (14:47)
[2019-01-09] MEDS: Melatonin 3 MG Tab PO SCH (21:22)
[2019-01-09] MEDS: Memantine 10 MG Tab PO SCH (21:22)
[2019-01-09] MEDS: Tamsulosin 0.4 MG Cap.ER PO SCH (21:22)
[2019-01-10] MEDS: Sodium Chloride 0.9% 1,000 ML IV SCH ×3 (02:24→21:44)
[2019-01-10] MEDS: Vancomycin 250 MG/5 ML ML Oral Solution PO SCH ×4 (06:16→21:35)
[2019-01-10] MEDS: Cyanocobalamin (Vitamin B12) 1,000 MCG Tab PO SCH (09:08)
[2019-01-10] MEDS: Lactobacillus Rhamnosus GG (Probiotic) Cap PO SCH ×2 (09:09→21:34)
[2019-01-10] MEDS: Cholecalciferol (Vitamin D3) 25 MCG Tab PO SCH (09:09)
[2019-01-10] MEDS: Diclofenac Sodium 1% Gel 100 GM Tube TOP SCH ×3 (09:11→21:35)
--- NOTE | 2019-01-10 12:31 | PCM.PN ---
- General Info Date of Service: 01/10/19 Subjective Update: The patient had some difficulty with agitation yesterday afternoon but no issues overnight. Diarrhea seems to be slowing a little bit. Temperatures have been better. White blood cell count trending down. He is a little bit more alert and interactive today. He is still complaining of abdominal pain and bloating. Urine culture growing mixed tiffanie. Functional Status: Reports: Tolerating Diet - Review of Systems General: Denies: Fever Gastrointestinal: Reports: Abdominal Pain, Diarrhea - Patient Data Vitals - Most Recent: Last Vital Signs Temp 35.7 C 01/10/19 11:54 Pulse 59 L 01/10/19 11:54 Resp 12 01/10/19 11:54 BP 133/63 01/10/19 11:54 Pulse Ox 94 L 01/10/19 11:54 Weight - Most Recent: 60.781 kg I&O - Last 24 Hours: Intake & Output 01/09/19 01/10/19 01/10/19 22:59 06:59 14:59 Intake Total 1623 1182 Balance 1623 1182 Lab Results Last 24 Hours: Laboratory Results - last 24 hr 01/10/19 01/10/19 Range/Units 06:01 06:01 WBC 35.9 H* (4.5-11.0) K/uL RBC 3.29 L (4.30-5.90) M/uL Hgb 9.6 L (12.0-15.0) g/dL Hct 29.3 L (40.0-54.0) % MCV 89 (80-98) fL MCH 29 (27-31) pg MCHC 33 (32-36) % Plt Count 344 (150-400) K/uL Neut % (Auto) 86 H (36-66) % Lymph % (Auto) 4 L (24-44) % [place] % (Auto) 9 H (2-6) % Eos % (Auto) 2 (2-4) % Baso % (Auto) 0 (0-1) % Sodium 138 L (140-148) mmol/L Potassium 4.0 (3.6-5.2) mmol/L Chloride 108 (100-108) mmol/L Carbon Dioxide 26 (21-32) mmol/L Anion Gap 8.0 (5.0-14.0) mmol/L BUN 21 H (7-18) mg/dL Creatinine 1.2 (0.8-1.3) mg/dL Est Cr Clr Drug Dosing 38.69 mL/min Estimated GFR (MDRD) 58 L (>60) Glucose 105 (74-106) mg/dL Calcium 9.8 (8.5-10.1) mg/dL Ramo Results Last 24 Hours: Microbiology 01/08/19 17:32 Urine Culture - Preliminary Urine, Voided MIXED POSITIVE TIFFANIE DAY 1 Med Orders - Current: Current Medications Acetaminophen (Tylenol) 650 mg PO Q4H PRN PRN Reason: Pain (Mild 1-3)/fever Last Admin: 01/09/19 15:02 Dose: 650 mg Cholecalciferol (Vitamin D3) 50 mcg PO DAILY [facility] Last Admin: 01/10/19 09:09 Dose: 50 mcg Cyanocobalamin (Vitamin B12) 1,000 mcg PO DAILY [facility] Last Admin: 01/10/19 09:08 Dose: 1,000 mcg Diclofenac Sodium (Voltaren 1% Gel) 0 gm TOP TID [facility] Last Admin: 01/10/19 09:11 Dose: 1 applic Haloperidol Lactate (Haldol) 2 mg IVPUSH Q4H PRN PRN Reason: Agitation Last Admin: 01/09/19 15:00 Dose: 2 mg Sodium Chloride (Normal Saline) 1,000 mls @ 100 mls/hr IV ASDIRECTED [facility] Last Admin: 01/10/19 02:24 Dose: 100 mls/hr Lactobacillus Rhamnosus (Culturelle) 1 cap PO BID [facility] Last Admin: 01/10/19 09:09 Dose: 1 cap Magnesium Hydroxide (Milk Of Magnesia) 30 ml PO Q12H PRN PRN Reason: Constipation Melatonin (Melatonin) 9 mg PO BEDTIME [facility] Last Admin: 01/09/19 21:22 Dose: 9 mg Memantine (Namenda) 10 mg PO BEDTIME [facility] Last Admin: 01/09/19 21:22 Dose: 10 mg Ondansetron HCl (Zofran Odt) 4 mg PO Q6H PRN PRN Reason: Nausea able to take PO Ondansetron HCl (Zofran) 4 mg IV Q6H PRN PRN Reason: Nausea/Vomiting Senna/Docusate Sodium (Senna Plus) 1 tab PO BID PRN PRN Reason: Constipation Sodium Chloride (Saline Flush) 10 ml FLUSH ASDIRECTED PRN PRN Reason: Keep Vein Open Tamsulosin HCl (Flomax) 0.4 mg PO BEDTIME [facility] Last Admin: 01/09/19 21:22 Dose: 0.4 mg Vancomycin HCl (Vancocin 250 Mg/5 Ml Soln) 125 mg PO QID [facility] Last Admin: 01/10/19 10:27 Dose: 125 mg Discontinued Medications Acetaminophen (Tylenol) 650 mg PO NOW ONE Stop: 01/08/19 17:07 Last Admin: 01/08/19 17:25 Dose: 650 mg Ciprofloxacin/Dextrose 400 mg/ (Premix) 200 mls @ 200 mls/hr IV Q12H [facility] Last Admin: 01/09/19 05:34 Dose: 200 mls/hr Vancomycin HCl (Vancomycin) Confirm Administered Dose 1 gm .ROUTE .STK-MED ONE Stop: 01/09/19 05:54 Last Admin: 01/09/19 06:04 Dose: Not Given - Exam Quality Assessment: No: Supplemental Oxygen General: Alert, Cooperative, Mild Distress. No: Oriented Lungs: Normal Respiratory Effort Cardiovascular: Regular Rate, Regular Rhythm GI/Abdominal Exam: Soft, Distended, Tender Extremities: No Pedal Edema Skin: Warm, Dry Psy/Mental Status: Alert, Normal Affect - Problem List & Annotations (1) Clostridioides difficile diarrhea SNOMED Code(s): 3465136958944 Code(s): A04.72 - ENTEROCOLITIS D/T CLOSTRIDIUM DIFFICILE, NOT SPCF RECUR Status: Acute Current Visit: Yes (2) BPH NOS w ur obs/LUTS SNOMED Code(s): 051380187, 033467500 Code(s): N40.1 - BENIGN PROSTATIC HYPERPLASIA WITH LOWER URINARY TRACT SYMP Status: Acute Current Visit: No (3) Alzheimer's dementia without behavioral disturbance SNOMED Code(s): 48213628 Code(s): G30.9 - ALZHEIMER'S DISEASE, UNSPECIFIED; F02.80 - DEMENTIA IN OTH DISEASES CLASSD ELSWHR W/O BEHAVRL DISTURB Status: Chronic Current Visit: No Qualifiers: Alzheimer's disease onset: late-onset Qualified Code(s): G30.1 - Alzheimer' s disease with late onset; F02.80 - Dementia in other diseases classified elsewhere without behavioral disturbance (4) CKD (chronic kidney disease), stage III SNOMED Code(s): 927642345 Code(s): N18.3 - CHRONIC KIDNEY DISEASE, STAGE 3 (MODERATE) Status: Chronic Current Visit: Yes - Problem List Review Problem List Initiated/Reviewed/Updated: Yes - My Orders Last 24 Hours: My Active Orders 01/09/19 13:16 Isolation [COMM] Routine 01/09/19 14:47 Haloperidol Lactate [Haldol] 2 mg IVPUSH Q4H PRN 01/10/19 11:44 PT Evaluation and Treatment [CONS] Routine 01/11/19 05:00 BASIC METABOLIC PANEL,BMP [CHEM] Timed CBC W/O DIFF,HEMOGRAM [HEME] Timed (1) - Plan Plan:: ASSESSMENT AND PLAN - Clostridium difficile colitis - still having moderate pain and moderate diarrhea. White blood cell count trending down. Temperatures better. More alert and interactive. -Vancomycin 125 mg daily 2 weeks (01/09-01/23) -Contact precautions -Probiotics -Continue IV fluids -Physical therapy to help with weakness Acute urinary retention secondary to BPH - initially some concern for infection but now definite source of infection identified with the Clostridium difficile. Urinary tract infection unlikely in culture growing only mixed tiffanie at this time. Antibiotics have been discontinued. -Continue tamsulosin Alzheimer's disease without behavioral disturbance - no behavior issues in the past 24 hours or so. -Continue home medications -Melatonin at bedtime -Haldol for severe agitation Stage III chronic kidney disease - Creatinine stable. -Gentle fluids and repeat labs in the morning Maintenance issues - - DVT prophylaxis - mechanical - GI prophylaxis - Not indicated - Nutrition - Regular diet - Prather catheter - Not indicated at this time Disposition - Anticipate discharge back to assisted living after the hospital stay Primary care physician - [place] [facility] Laurent Mcnamara M.D.
[2019-01-10] MEDS: Melatonin 3 MG Tab PO SCH (21:35)
[2019-01-10] MEDS: Tamsulosin 0.4 MG Cap.ER PO SCH (21:35)
[2019-01-10] MEDS: Memantine 10 MG Tab PO SCH (21:35)
[2019-01-11] MEDS: Vancomycin 250 MG/5 ML ML Oral Solution PO SCH ×4 (06:01→21:06)
[2019-01-11] MEDS: Sodium Chloride 0.9% 1,000 ML IV SCH (07:54)
[2019-01-11] MEDS ORDERED: Potassium Chloride 20 MEQ Tab.ER PO ONE (08:30)
[2019-01-11] MEDS: Cholecalciferol (Vitamin D3) 25 MCG Tab PO SCH (08:32)
[2019-01-11] MEDS: Cyanocobalamin (Vitamin B12) 1,000 MCG Tab PO SCH (08:32)
[2019-01-11] MEDS: Lactobacillus Rhamnosus GG (Probiotic) Cap PO SCH ×2 (08:32→21:05)
[2019-01-11] MEDS: Diclofenac Sodium 1% Gel 100 GM Tube TOP SCH ×3 (08:33→21:06)
--- NOTE | 2019-01-11 11:49 | PCM.PN ---
- General Info Date of Service: 01/11/19 Subjective Update: No acute events overnight. No fevers. No agitation. Abdominal pain is a little better. Multiple bowel movements yesterday but diarrhea seems to be improving during the past 12 hours. Appetite slightly better. Strength is slowly improving. Urine culture remains negative. Functional Status: Reports: Pain Controlled, Tolerating Diet - Review of Systems General: Reports: Weakness. Denies: Fever Gastrointestinal: Reports: Abdominal Pain, Diarrhea - Patient Data Vitals - Most Recent: Last Vital Signs Temp 36.2 C 01/11/19 07:00 Pulse 63 01/11/19 07:00 Resp 16 01/11/19 07:00 BP 134/64 01/11/19 07:00 Pulse Ox 94 L 01/11/19 07:00 Weight - Most Recent: 60.781 kg I&O - Last 24 Hours: Intake & Output 01/10/19 01/11/19 01/11/19 22:59 06:59 14:59 Intake Total 1153 1544 120 Balance 1153 1544 120 Lab Results Last 24 Hours: Laboratory Results - last 24 hr 01/11/19 01/11/19 Range/Units 05:00 05:00 WBC 20.6 H (4.5-11.0) K/uL RBC 3.36 L (4.30-5.90) M/uL Hgb 9.5 L (12.0-15.0) g/dL Hct 30.1 L (40.0-54.0) % MCV 90 (80-98) fL MCH 28 (27-31) pg MCHC 32 (32-36) % Plt Count 333 (150-400) K/uL Sodium 143 (140-148) mmol/L Potassium 3.6 (3.6-5.2) mmol/L Chloride 113 H (100-108) mmol/L Carbon Dioxide 22 (21-32) mmol/L Anion Gap 11.6 (5.0-14.0) mmol/L BUN 16 (7-18) mg/dL Creatinine 1.0 (0.8-1.3) mg/dL Est Cr Clr Drug Dosing 46.43 mL/min Estimated GFR (MDRD) > 60 (>60) Glucose 92 (74-106) mg/dL Calcium 9.6 (8.5-10.1) mg/dL Ramo Results Last 24 Hours: Microbiology 01/08/19 17:32 Urine Culture - Final Urine, Voided MIXED POSITIVE TIFFANIE DAY 2 Med Orders - Current: Current Medications Acetaminophen (Tylenol) 650 mg PO Q4H PRN PRN Reason: Pain (Mild 1-3)/fever Last Admin: 01/09/19 15:02 Dose: 650 mg Cholecalciferol (Vitamin D3) 50 mcg PO DAILY [facility] Last Admin: 01/11/19 08:32 Dose: 50 mcg Cyanocobalamin (Vitamin B12) 1,000 mcg PO DAILY [facility] Last Admin: 01/11/19 08:32 Dose: 1,000 mcg Diclofenac Sodium (Voltaren 1% Gel) 0 gm TOP TID [facility] Last Admin: 01/11/19 08:33 Dose: 1 applic Haloperidol Lactate (Haldol) 2 mg IVPUSH Q4H PRN PRN Reason: Agitation Last Admin: 01/09/19 15:00 Dose: 2 mg Lactobacillus Rhamnosus (Culturelle) 1 cap PO BID [facility] Last Admin: 01/11/19 08:32 Dose: 1 cap Magnesium Hydroxide (Milk Of Magnesia) 30 ml PO Q12H PRN PRN Reason: Constipation Melatonin (Melatonin) 9 mg PO BEDTIME [facility] Last Admin: 01/10/19 21:35 Dose: 9 mg Memantine (Namenda) 10 mg PO BEDTIME [facility] Last Admin: 01/10/19 21:35 Dose: 10 mg Ondansetron HCl (Zofran Odt) 4 mg PO Q6H PRN PRN Reason: Nausea able to take PO Ondansetron HCl (Zofran) 4 mg IV Q6H PRN PRN Reason: Nausea/Vomiting Senna/Docusate Sodium (Senna Plus) 1 tab PO BID PRN PRN Reason: Constipation Sodium Chloride (Saline Flush) 10 ml FLUSH ASDIRECTED PRN PRN Reason: Keep Vein Open Tamsulosin HCl (Flomax) 0.4 mg PO BEDTIME [facility] Last Admin: 01/10/19 21:35 Dose: 0.4 mg Vancomycin HCl (Vancocin 250 Mg/5 Ml Soln) 125 mg PO QID [facility] Stop: 01/23/19 22:30 Last Admin: 01/11/19 06:01 Dose: 125 mg Discontinued Medications Acetaminophen (Tylenol) 650 mg PO NOW ONE Stop: 01/08/19 17:07 Last Admin: 01/08/19 17:25 Dose: 650 mg Ciprofloxacin/Dextrose 400 mg/ (Premix) 200 mls @ 200 mls/hr IV Q12H [facility] Last Admin: 01/09/19 05:34 Dose: 200 mls/hr Sodium Chloride (Normal Saline) 1,000 mls @ 100 mls/hr IV ASDIRECTED [facility] Last Admin: 01/11/19 07:54 Dose: 100 mls/hr Potassium Chloride (Klor-Con M20) 40 meq PO ONETIME ONE Stop: 01/11/19 08:31 Last Admin: 01/11/19 08:40 Dose: 40 meq Vancomycin HCl (Vancomycin) Confirm Administered Dose 1 gm .ROUTE .STK-MED ONE Stop: 01/09/19 05:54 Last Admin: 01/09/19 06:04 Dose: Not Given - Exam Quality Assessment: No: Supplemental Oxygen General: Alert, Cooperative, No Acute Distress Lungs: Normal Respiratory Effort GI/Abdominal Exam: Soft, Non-Tender, No Distention Extremities: No Pedal Edema Psy/Mental Status: Alert, Normal Affect - Problem List & Annotations (1) Clostridioides difficile diarrhea SNOMED Code(s): 1873759434944 Code(s): A04.72 - ENTEROCOLITIS D/T CLOSTRIDIUM DIFFICILE, NOT SPCF RECUR Status: Acute Current Visit: Yes (2) BPH NOS w ur obs/LUTS SNOMED Code(s): 787942808, 898255722 Code(s): N40.1 - BENIGN PROSTATIC HYPERPLASIA WITH LOWER URINARY TRACT SYMP Status: Acute Current Visit: No (3) Alzheimer's dementia without behavioral disturbance SNOMED Code(s): 54376004 Code(s): G30.9 - ALZHEIMER'S DISEASE, UNSPECIFIED; F02.80 - DEMENTIA IN OTH DISEASES CLASSD ELSWHR W/O BEHAVRL DISTURB Status: Chronic Current Visit: No Qualifiers: Alzheimer's disease onset: late-onset Qualified Code(s): G30.1 - Alzheimer' s disease with late onset; F02.80 - Dementia in other diseases classified elsewhere without behavioral disturbance (4) CKD (chronic kidney disease), stage III SNOMED Code(s): 714461697 Code(s): N18.3 - CHRONIC KIDNEY DISEASE, STAGE 3 (MODERATE) Status: Chronic Current Visit: Yes - Problem List Review Problem List Initiated/Reviewed/Updated: Yes - My Orders Last 24 Hours: My Active Orders 01/10/19 11:44 PT Evaluation and Treatment [CONS] Routine 01/11/19 11:47 Convert IV to Saline Lock [OM.PC] Routine 01/12/19 05:00 BASIC METABOLIC PANEL,BMP [CHEM] Timed CBC W/O DIFF,HEMOGRAM [HEME] Timed (1) - Plan Plan:: ASSESSMENT AND PLAN - Clostridium difficile colitis - diarrhea slowly improving. White blood cell count trending down. Abdominal pain has been improving. -Vancomycin 125 mg daily 2 weeks (01/09-01/23) -Contact precautions -Probiotics -Saline lock IV -Physical therapy to help with weakness Acute urinary retention secondary to BPH - initially some concern for infection but now definite source of infection identified with the Clostridium difficile. Urinary tract infection unlikely in culture growing only mixed tiffanie at this time. Antibiotics have been discontinued. -Continue tamsulosin Alzheimer's disease without behavioral disturbance - no behavior issues in the past 24 hours or so. -Continue home medications -Melatonin at bedtime -Haldol for severe agitation Stage III chronic kidney disease - Creatinine stable. -Gentle fluids and repeat labs in the morning Maintenance issues - - DVT prophylaxis - mechanical - GI prophylaxis - Not indicated - Nutrition - Regular diet - Prather catheter - Not indicated at this time Disposition - Anticipate discharge back to assisted living after the hospital stay Primary care physician - [place] [facility] Laurent Mcnamara M.D.
[2019-01-11] MEDS ORDERED: Calcium Carbonate 500 MG Tab.Chew PO PRN (20:02)
[2019-01-11] MEDS: Melatonin 3 MG Tab PO SCH (21:05)
[2019-01-11] MEDS: Tamsulosin 0.4 MG Cap.ER PO SCH (21:05)
[2019-01-11] MEDS: Memantine 10 MG Tab PO SCH (21:05)
[2019-01-12] MEDS: Vancomycin 250 MG/5 ML ML Oral Solution PO SCH ×4 (05:52→21:26)
[2019-01-12] MEDS: Cyanocobalamin (Vitamin B12) 1,000 MCG Tab PO SCH (08:30)
[2019-01-12] MEDS ORDERED: Potassium Chloride 20 MEQ Tab.ER PO ONE (08:30)
[2019-01-12] MEDS: Lactobacillus Rhamnosus GG (Probiotic) Cap PO SCH ×2 (08:30→21:25)
[2019-01-12] MEDS: Diclofenac Sodium 1% Gel 100 GM Tube TOP SCH ×3 (08:34→21:25)
[2019-01-12] MEDS: Cholecalciferol (Vitamin D3) 25 MCG Tab PO SCH (08:34)
--- NOTE | 2019-01-12 12:04 | PCM.PN ---
- General Info Date of Service: 01/12/19 Subjective Update: No acute events overnight. For bowel movements in the past 24 hours and these are starting to become soft rather than loose. No fevers. Abdominal pain has resolved. Appetite is a little better. Strength is improving. Functional Status: Reports: Pain Controlled, Tolerating Diet - Review of Systems General: Denies: Fever Gastrointestinal: Denies: Abdominal Pain - Patient Data Vitals - Most Recent: Last Vital Signs Temp 36.1 C 01/12/19 11:20 Pulse 62 01/12/19 11:20 Resp 17 01/12/19 11:20 BP 137/81 01/12/19 11:20 Pulse Ox 96 01/12/19 11:20 Weight - Most Recent: 60.781 kg I&O - Last 24 Hours: Intake & Output 01/11/19 01/12/19 01/12/19 22:59 06:59 14:59 Intake Total 590 1020 Balance 590 1020 Lab Results Last 24 Hours: Laboratory Results - last 24 hr 01/12/19 01/12/19 Range/Units 05:35 05:35 WBC 9.4 (4.5-11.0) K/uL RBC 3.32 L (4.30-5.90) M/uL Hgb 9.3 L (12.0-15.0) g/dL Hct 29.4 L (40.0-54.0) % MCV 89 (80-98) fL MCH 28 (27-31) pg MCHC 32 (32-36) % Plt Count 357 (150-400) K/uL Sodium 144 (140-148) mmol/L Potassium 3.7 (3.6-5.2) mmol/L Chloride 114 H (100-108) mmol/L Carbon Dioxide 22 (21-32) mmol/L Anion Gap 11.7 (5.0-14.0) mmol/L BUN 15 (7-18) mg/dL Creatinine 1.1 (0.8-1.3) mg/dL Est Cr Clr Drug Dosing 42.21 mL/min Estimated GFR (MDRD) > 60 (>60) Glucose 86 (74-106) mg/dL Calcium 9.8 (8.5-10.1) mg/dL Med Orders - Current: Current Medications Acetaminophen (Tylenol) 650 mg PO Q4H PRN PRN Reason: Pain (Mild 1-3)/fever Last Admin: 01/09/19 15:02 Dose: 650 mg Calcium Carbonate/Glycine (Tums) 1,000 mg PO Q2H PRN PRN Reason: Indigestion Last Admin: 01/11/19 20:10 Dose: 1,000 mg Cholecalciferol (Vitamin D3) 50 mcg PO DAILY [facility] Last Admin: 01/12/19 08:34 Dose: 50 mcg Cyanocobalamin (Vitamin B12) 1,000 mcg PO DAILY [facility] Last Admin: 01/12/19 08:30 Dose: 1,000 mcg Diclofenac Sodium (Voltaren 1% Gel) 0 gm TOP TID [facility] Last Admin: 01/12/19 08:34 Dose: 1 applic Haloperidol Lactate (Haldol) 2 mg IVPUSH Q4H PRN PRN Reason: Agitation Last Admin: 01/09/19 15:00 Dose: 2 mg Lactobacillus Rhamnosus (Culturelle) 1 cap PO BID [facility] Last Admin: 01/12/19 08:30 Dose: 1 cap Magnesium Hydroxide (Milk Of Magnesia) 30 ml PO Q12H PRN PRN Reason: Constipation Melatonin (Melatonin) 9 mg PO BEDTIME [facility] Last Admin: 01/11/19 21:05 Dose: 9 mg Memantine (Namenda) 10 mg PO BEDTIME [facility] Last Admin: 01/11/19 21:05 Dose: 10 mg Ondansetron HCl (Zofran Odt) 4 mg PO Q6H PRN PRN Reason: Nausea able to take PO Ondansetron HCl (Zofran) 4 mg IV Q6H PRN PRN Reason: Nausea/Vomiting Senna/Docusate Sodium (Senna Plus) 1 tab PO BID PRN PRN Reason: Constipation Sodium Chloride (Saline Flush) 10 ml FLUSH ASDIRECTED PRN PRN Reason: Keep Vein Open Tamsulosin HCl (Flomax) 0.4 mg PO BEDTIME [facility] Last Admin: 01/11/19 21:05 Dose: 0.4 mg Vancomycin HCl (Vancocin 250 Mg/5 Ml Soln) 125 mg PO QID [facility] Stop: 01/23/19 22:30 Last Admin: 01/12/19 05:52 Dose: 125 mg Discontinued Medications Acetaminophen (Tylenol) 650 mg PO NOW ONE Stop: 01/08/19 17:07 Last Admin: 01/08/19 17:25 Dose: 650 mg Ciprofloxacin/Dextrose 400 mg/ (Premix) 200 mls @ 200 mls/hr IV Q12H [facility] Last Admin: 01/09/19 05:34 Dose: 200 mls/hr Sodium Chloride (Normal Saline) 1,000 mls @ 100 mls/hr IV ASDIRECTED [facility] Last Admin: 01/11/19 07:54 Dose: 100 mls/hr Potassium Chloride (Klor-Con M20) 40 meq PO ONETIME ONE Stop: 01/11/19 08:31 Last Admin: 01/11/19 08:40 Dose: 40 meq Potassium Chloride (Klor-Con M20) 40 meq PO ONETIME ONE Stop: 01/12/19 08:31 Last Admin: 01/12/19 10:55 Dose: 40 meq Vancomycin HCl (Vancomycin) Confirm Administered Dose 1 gm .ROUTE .STK-MED ONE Stop: 01/09/19 05:54 Last Admin: 01/09/19 06:04 Dose: Not Given - Exam Quality Assessment: No: Supplemental Oxygen General: Alert, Cooperative, No Acute Distress Lungs: Normal Respiratory Effort GI/Abdominal Exam: Soft, No Distention Extremities: No Pedal Edema Psy/Mental Status: Alert, Normal Affect - Problem List & Annotations (1) Clostridioides difficile diarrhea SNOMED Code(s): 8659744036610 Code(s): A04.72 - ENTEROCOLITIS D/T CLOSTRIDIUM DIFFICILE, NOT SPCF RECUR Status: Acute Current Visit: Yes (2) BPH NOS w ur obs/LUTS SNOMED Code(s): 893742717, 402428582 Code(s): N40.1 - BENIGN PROSTATIC HYPERPLASIA WITH LOWER URINARY TRACT SYMP Status: Acute Current Visit: No (3) Alzheimer's dementia without behavioral disturbance SNOMED Code(s): 25565457 Code(s): G30.9 - ALZHEIMER'S DISEASE, UNSPECIFIED; F02.80 - DEMENTIA IN OTH DISEASES CLASSD ELSWHR W/O BEHAVRL DISTURB Status: Chronic Current Visit: No Qualifiers: Alzheimer's disease onset: late-onset Qualified Code(s): G30.1 - Alzheimer' s disease with late onset; F02.80 - Dementia in other diseases classified elsewhere without behavioral disturbance (4) CKD (chronic kidney disease), stage III SNOMED Code(s): 913955734 Code(s): N18.3 - CHRONIC KIDNEY DISEASE, STAGE 3 (MODERATE) Status: Chronic Current Visit: Yes - Problem List Review Problem List Initiated/Reviewed/Updated: Yes - My Orders Last 24 Hours: My Active Orders 01/11/19 11:47 Convert IV to Saline Lock [OM.PC] Routine 01/11/19 20:02 Calcium Carbonate [Tums] 1,000 mg PO Q2H PRN - Plan Plan:: ASSESSMENT AND PLAN - Clostridium difficile colitis - diarrhea slowly improving. White blood cell count has normalized. Abdominal pain resolved. -Vancomycin 125 mg daily 2 weeks (01/09-01/23) -Contact precautions -Probiotics -Saline lock IV -Physical therapy to help with weakness Acute urinary retention secondary to BPH - initially some concern for infection but now definite source of infection identified with the Clostridium difficile. Urinary tract infection unlikely in culture growing only mixed tiffanie at this time. Antibiotics have been discontinued. -Continue tamsulosin Alzheimer's disease without behavioral disturbance - no behavior issues in the past 24 hours or so. -Continue home medications -Melatonin at bedtime -Haldol for severe agitation Stage III chronic kidney disease - Creatinine stable. -Gentle fluids and repeat labs in the morning Maintenance issues - - DVT prophylaxis - mechanical - GI prophylaxis - Not indicated - Nutrition - Regular diet - Prather catheter - Not indicated at this time Disposition - Anticipate discharge back to assisted living after the hospital stay, likely tomorrow if stable overnight Primary care physician - [place] [facility] Laurent Mcnamara M.D.
--- NOTE | 2019-01-12 13:18 | PCM.DCSUM1 ---
Discharge Summary - Hospital Course Brief History: 83-year-old male with history of BPH, mild dementia and recent urinary tract infection presented with fever and lethargy. He was admitted for management of presumed recurrent urinary tract infection but shortly after admission started having diarrhea and was found to have Clostridium difficile colitis. Diagnosis: Stroke: No - Discharge Data Discharge Date: 01/13/19 Discharge Disposition: Home, Self-Care 01 Condition: Good - Discharge Diagnosis/Problem(s) (1) Clostridioides difficile diarrhea SNOMED Code(s): 7030354043247 ICD Code: A04.72 - ENTEROCOLITIS D/T CLOSTRIDIUM DIFFICILE, NOT SPCF RECUR Status: Acute Current Visit: Yes (2) BPH NOS w ur obs/LUTS SNOMED Code(s): 442266761, 742432402 ICD Code: N40.1 - BENIGN PROSTATIC HYPERPLASIA WITH LOWER URINARY TRACT SYMP Status: Acute Current Visit: No (3) Alzheimer's dementia without behavioral disturbance SNOMED Code(s): 64676011 ICD Code: G30.9 - ALZHEIMER'S DISEASE, UNSPECIFIED; F02.80 - DEMENTIA IN OTH DISEASES CLASSD ELSWHR W/O BEHAVRL DISTURB Status: Chronic Current Visit: No Qualifiers: Alzheimer's disease onset: late-onset Qualified Code(s): G30.1 - Alzheimer' s disease with late onset; F02.80 - Dementia in other diseases classified elsewhere without behavioral disturbance (4) CKD (chronic kidney disease), stage III SNOMED Code(s): 897128471 ICD Code: N18.3 - CHRONIC KIDNEY DISEASE, STAGE 3 (MODERATE) Status: Chronic Current Visit: Yes - Patient Summary/Data Consults: Consultations 01/10/19 11:44 PT Evaluation and Treatment [CONS] Routine Please Evaluate and Treat. PT Reason for Consult: Strengthening This query below is only for informational purposes and is not editable. Admission Diagnosis/Problem: Complicated urinary tract infection Hospital Course: Chauncey presented to the emergency room with fever and lethargy. Initially the workup in the emergency room did not reveal a clear cause for his fever but recurrent urinary tract infection was initially suspected. He did receive a dose of ciprofloxacin. Shortly after transfer to the floor from the emergency room he developed diarrhea. After 4 stools a sample was sent to the lab and was positive for Clostridium difficile. Antibiotics directed at the initially suspected bladder infection were discontinued. He was started on oral vancomycin and placed in contact precautions. Over the next 24 hours he had multiple watery bowel movements. He remained lethargic and had some abdominal pain. This was the case into the second day of hospitalization as well since that time he has made steady improvement. He has tolerated the vancomycin well and his diarrhea has been improving. Stools are now loose to soft and down to about 3-4 per day. He has not had any fevers. His abdominal pain has resolved. His appetite is improving. His urine culture grew mixed tiffanie and he has not received additional antibiotic therapy aimed at the urinary tract. He has done well with ambulation and physical therapy. I believe he is safe for discharge at this time and will be going back to his assisted living facility. He will need 10-1/2 additional days of vancomycin therapy and will be on a probiotic twice daily for a month. Also noted at the time of admission was a bladder which had more than 500 mL of urine inside. He was able to pass only small amounts. He has a history of recurrent infections and has previously required a Prather catheter. I did start him on tamsulosin after discussion with his daughter. He has tolerated this medication well and seems to be passing urine well. I would recommend that we continue this medication after hospital discharge. - Patient Instructions Diet: Regular Diet as Tolerated Activity: As Tolerated Showering/Bathing: May Shower Notify Provider of: Fever, Increased Pain, Nausea and/or Vomiting Other/Special Instructions: 1. You were in the hospital for management of Clostridium difficile colitis. This infection in your colon caused diarrhea, elevated white blood cell count and fever. Your condition has been improving with antibiotic therapy. I do recommend additional antibiotic therapy with vancomycin. You should take 125 mg 4 times daily for 10 1/2 additional days to complete a total of 2 weeks of treatment. I do also recommend that you take a probiotic twice daily for the next month. 2. During the hospital stay we noted difficulty with incomplete emptying of your bladder. We have initiated tamsulosin (Flomax) to help with this difficulty passing urine. I recommend that you continue to take 1 tablet of tamsulosin daily at bedtime. 3. Continue your other home medications as previously prescribed. 4. Seek medical attention if you fever greater than 101, severe abdominal pain, severe diarrhea or persistent vomiting. - Discharge Plan *PRESCRIPTION DRUG MONITORING PROGRAM REVIEWED*: No *COPY OF PRESCRIPTION DRUG MONITORING REPORT IN PATIENT KACY: No Prescriptions/Med Rec: Lactobacillus Rhamnosus GG [Culturelle] 1 cap PO BID #60 cap Tamsulosin [Flomax] 0.4 mg PO BEDTIME #30 cap.er Vancomycin [Vancocin 125 MG/5 ML Soln] 125 mg PO QID #210 ml Home Medications: Home Meds Cyanocobalamin (Vitamin B12) [Vitamin B12] 1,000 mg PO DAILY 12/04/15 [History] Cholecalciferol (Vitamin D3) [Vitamin D3] 2,000 unit PO DAILY 12/27/18 [History] Diclofenac Sodium [Voltaren] 100 gm TP QID 12/27/18 [History] Memantine [Namenda] 10 mg PO BEDTIME 12/27/18 [History] Psyllium [Metamucil] 1 gm PO DAILY 12/27/18 [History] Paliperidone Palmitate [Invega Sustenna] 0.25 ml IM ASDIRECTED 01/08/19 [History ] Lactobacillus Rhamnosus GG [Culturelle] 1 cap PO BID #60 cap 01/12/19 [Rx] Tamsulosin [Flomax] 0.4 mg PO BEDTIME #30 cap.er 01/12/19 [Rx] Vancomycin [Vancocin 125 MG/5 ML Soln] 125 mg PO QID #210 ml 01/12/19 [Rx] Oxygen Therapy Mode: Room Air Patient Handouts: Clostridium Difficile Infection, [id number], Vancomycin oral solution Referrals: PCP,None [Primary Care Provider] - [facility] ) - Discharge Summary/Plan Comment DC Time >30 min.: No (40 - complex discharge back to assisted living) - Patient Data Vitals - Most Recent: Last Vital Signs Temp 36.1 C 01/12/19 11:20 Pulse 62 01/12/19 11:20 Resp 17 01/12/19 11:20 BP 137/81 01/12/19 11:20 Pulse Ox 96 01/12/19 11:20 Weight - Most Recent: 60.781 kg I&O - Last 24 hours: Intake & Output 01/11/19 01/12/19 01/12/19 22:59 06:59 14:59 Intake Total 590 1020 Balance 590 1020 Lab Results - Last 24 hrs: Laboratory Results - last 24 hr 01/12/19 01/12/19 Range/Units 05:35 05:35 WBC 9.4 (4.5-11.0) K/uL RBC 3.32 L (4.30-5.90) M/uL Hgb 9.3 L (12.0-15.0) g/dL Hct 29.4 L (40.0-54.0) % MCV 89 (80-98) fL MCH 28 (27-31) pg MCHC 32 (32-36) % Plt Count 357 (150-400) K/uL Sodium 144 (140-148) mmol/L Potassium 3.7 (3.6-5.2) mmol/L Chloride 114 H (100-108) mmol/L Carbon Dioxide 22 (21-32) mmol/L Anion Gap 11.7 (5.0-14.0) mmol/L BUN 15 (7-18) mg/dL Creatinine 1.1 (0.8-1.3) mg/dL Est Cr Clr Drug Dosing 42.21 mL/min Estimated GFR (MDRD) > 60 (>60) Glucose 86 (74-106) mg/dL Calcium 9.8 (8.5-10.1) mg/dL Med Orders - Current: Current Medications Acetaminophen (Tylenol) 650 mg PO Q4H PRN PRN Reason: Pain (Mild 1-3)/fever Last Admin: 01/09/19 15:02 Dose: 650 mg Calcium Carbonate/Glycine (Tums) 1,000 mg PO Q2H PRN PRN Reason: Indigestion Last Admin: 01/11/19 20:10 Dose: 1,000 mg Cholecalciferol (Vitamin D3) 50 mcg PO DAILY [facility] Last Admin: 01/12/19 08:34 Dose: 50 mcg Cyanocobalamin (Vitamin B12) 1,000 mcg PO DAILY [facility] Last Admin: 01/12/19 08:30 Dose: 1,000 mcg Diclofenac Sodium (Voltaren 1% Gel) 0 gm TOP TID [facility] Last Admin: 01/12/19 08:34 Dose: 1 applic Haloperidol Lactate (Haldol) 2 mg IVPUSH Q4H PRN PRN Reason: Agitation Last Admin: 01/09/19 15:00 Dose: 2 mg Lactobacillus Rhamnosus (Culturelle) 1 cap PO BID [facility] Last Admin: 01/12/19 08:30 Dose: 1 cap Magnesium Hydroxide (Milk Of Magnesia) 30 ml PO Q12H PRN PRN Reason: Constipation Melatonin (Melatonin) 9 mg PO BEDTIME [facility] Last Admin: 01/11/19 21:05 Dose: 9 mg Memantine (Namenda) 10 mg PO BEDTIME [facility] Last Admin: 01/11/19 21:05 Dose: 10 mg Ondansetron HCl (Zofran Odt) 4 mg PO Q6H PRN PRN Reason: Nausea able to take PO Ondansetron HCl (Zofran) 4 mg IV Q6H PRN PRN Reason: Nausea/Vomiting Senna/Docusate Sodium (Senna Plus) 1 tab PO BID PRN PRN Reason: Constipation Sodium Chloride (Saline Flush) 10 ml FLUSH ASDIRECTED PRN PRN Reason: Keep Vein Open Tamsulosin HCl (Flomax) 0.4 mg PO BEDTIME [facility] Last Admin: 01/11/19 21:05 Dose: 0.4 mg Vancomycin HCl (Vancocin 250 Mg/5 Ml Soln) 125 mg PO QID [facility] Stop: 01/23/19 22:30 Last Admin: 01/12/19 11:00 Dose: 125 mg Discontinued Medications Acetaminophen (Tylenol) 650 mg PO NOW ONE Stop: 01/08/19 17:07 Last Admin: 01/08/19 17:25 Dose: 650 mg Ciprofloxacin/Dextrose 400 mg/ (Premix) 200 mls @ 200 mls/hr IV Q12H [facility] Last Admin: 01/09/19 05:34 Dose: 200 mls/hr Sodium Chloride (Normal Saline) 1,000 mls @ 100 mls/hr IV ASDIRECTED [facility] Last Admin: 01/11/19 07:54 Dose: 100 mls/hr Potassium Chloride (Klor-Con M20) 40 meq PO ONETIME ONE Stop: 01/11/19 08:31 Last Admin: 01/11/19 08:40 Dose: 40 meq Potassium Chloride (Klor-Con M20) 40 meq PO ONETIME ONE Stop: 01/12/19 08:31 Last Admin: 01/12/19 10:55 Dose: 40 meq Vancomycin HCl (Vancomycin) Confirm Administered Dose 1 gm .ROUTE .STK-MED ONE Stop: 01/09/19 05:54 Last Admin: 01/09/19 06:04 Dose: Not Given - Exam Quality Assessment: Denies: Supplemental Oxygen General: Reports: Alert, Cooperative, No Acute Distress Lungs: Reports: Normal Respiratory Effort Cardiovascular: Reports: Regular Rate, Regular Rhythm GI/Abdominal Exam: Soft, No Distention Extremities: No Pedal Edema Psy/Mental Status: Reports: Alert, Normal Affect
[2019-01-12] MEDS: Tamsulosin 0.4 MG Cap.ER PO SCH (21:25)
[2019-01-12] MEDS: Memantine 10 MG Tab PO SCH (21:25)
[2019-01-12] MEDS: Melatonin 3 MG Tab PO SCH (21:25)
[2019-01-13] MEDS: Vancomycin 250 MG/5 ML ML Oral Solution PO SCH ×2 (05:44→09:28)
[2019-01-13 07:25] VITALS: BP 140/60; PULSE 51
[2019-01-13] MEDS: Cyanocobalamin (Vitamin B12) 1,000 MCG Tab PO SCH (09:28)
[2019-01-13] MEDS: Lactobacillus Rhamnosus GG (Probiotic) Cap PO SCH (09:28)
[2019-01-13] MEDS: Cholecalciferol (Vitamin D3) 25 MCG Tab PO SCH (09:29)
[2019-01-13] MEDS: Diclofenac Sodium 1% Gel 100 GM Tube TOP SCH (09:29)
== END 2019-01-13 10:30 | disposition home or self-care (01) | DRG 726 ==
LOC: JP.ED 16:59 → JP.MS 18:20
PROVIDERS: ADMIT Internal Medicine; ATTEND Internal Medicine
DX: N40.1 Benign prostatic hyperplasia with lower urinary tract symptoms (principal); A04.72 Enterocolitis due to Clostridium difficile, not specified as recurrent; R33.8 Other retention of urine; G30.9 Alzheimer's disease, unspecified; F02.80 Dementia in other diseases classified elsewhere, unspecified severity, without behavioral disturbance, psychotic disturbance, mood disturbance, and anxiety; N39.0 Urinary tract infection, site not specified; R50.9 Fever, unspecified; I12.9 Hypertensive chronic kidney disease with stage 1 through stage 4 chronic kidney disease, or unspecified chronic kidney disease; N18.3 Chronic kidney disease, stage 3 (moderate); F03.90 Unspecified dementia, unspecified severity, without behavioral disturbance, psychotic disturbance, mood disturbance, and anxiety; Z79.899 Other long term (current) drug therapy; Z93.6 Other artificial openings of urinary tract status; H40.9 Unspecified glaucoma; H54.7 Unspecified visual loss; I10 Essential (primary) hypertension; Z66 Do not resuscitate; I45.10 Unspecified right bundle-branch block; K21.9 Gastro-esophageal reflux disease without esophagitis; M19.90 Unspecified osteoarthritis, unspecified site; F20.9 Schizophrenia, unspecified; E53.8 Deficiency of other specified B group vitamins; L65.9 Nonscarring hair loss, unspecified; R53.81 Other malaise; K92.1 Melena; D72.829 Elevated white blood cell count, unspecified
CPT/HCPCS: 36415; 51798; 71046; 80048; 81001; 85027; 87086; 99283; 99284; A9270; 85025; 87493; 97110-GP; 97161-GP; 97530-GP; J0744; J1630; J7030